=== PATIENT | female | born 1945 | race Caucasian/White ===

== ENCOUNTER → 2017-07-03 | Outpatient (CLI) | payer OTHER ==
[~2017-07-03] MED LIST: AMLODIPINE BESYL5 MG PO; CRESTOR20 MG PO; HYDROCODON-ACE1 EAC7 PO; LEXAPRO 10 MG T10 M1 PO; LISINOPRIL20 MG PO; PRILOSEC 20 MG20 MG PO; SPIRIVA INH; SYMBICORT160 MCG/4. INH
--- NOTE | ~2017-07-03 | 2DMMODE ---
[facility] [address] [place] [address] 2 D/M-MODE ECHOCARDIOGRAM Name: LAYNELINDAKO HAMPTON Room #: REG [facility]#: [id number] Admission: 07/03/17 Attend Phys: Flaco Joshua MD Discharge: Date of : 49 Date of Service: 07/03/17 1209 Report #: [id number] THIS REPORT FOR: //name// APPROVED REPORT Study performed: 07/03/2017 11:10:16 EXAM: Comprehensive 2D, Doppler, and color-flow Echocardiogram Patient Location: Out-Patient Room #: Echo lab 2 Status: routine BSA: 1.81 HR: 71 bpm BP: 136/82 mmHg Other Information Study Quality: Adequate Indications CAD Hypertension/HDD 2D Dimensions RVDd: 31.70 mm LVEF(%): 57.85 (>50%) IVSd: 11.69 (7-11mm) LVOT Diam: 21.93 (18-24mm) LVDd: 51.23 mm PWd: 12.08 (7-11mm) Ascending Ao: 30.81 (22-36mm) LVDs: 35.52 (25-40mm) Aortic Root: 25.47 mm IVC: 17.00 mm Foley's LVEF: 57.85 % Volumes Left Atrial Volume (Systole) Single Plane 4CH: 43.03 mL Single Plane 2CH: 38.21 mL LA ESV Index: 24.00 mL/m2 Aortic Valve AoV Peak John.: 1.11 m/s AO Peak Gr.: 4.97 mmHg LVOT Max P.98 mmHg LVOT Max V: 1.00 m/s ALISSON Vmax: 3.38 cm2 Mitral Valve E/A Ratio: 1.0 MV Decel. Time: 120.12 ms [facility] [place] [address] 2 D/M-MODE ECHOCARDIOGRAM Name: LINDA LAYNE Room #: REG [facility].#: [id number] Admission: 07/03/17 Attend Phys: Flaco Joshua MD Discharge: Date of : 49 Date of Service: 07/03/17 1209 Report #: [id number] MV E Max John.: 0.68 m/s MV A John.: 0.70 m/s MV PHT: 34.83 ms IVRT: 101.50 ms Pulmonary Valve PV Peak John.: 0.84 m/s PV Peak Gr.: 2.82 mmHg Pulmonary Vein P Vein S: 0.48 m/s P Vein A: 0.27 m/s P Vein D: 0.40 m/s P Vein A Dur.: 92.3 msec P Vein S/D Ratio: 1.20 Tricuspid Valve TR Peak John.: 2.62 m/s TR Peak Gr.: 27.40 mmHg PA Pressure: 32.00 mmHg Left Ventricle The left ventricle is normal size. Mild concentric left ventricular hypertrophy. The left ventricular systolic function is normal. The left ventricular ejection fraction is within the normal range. LVEF is 55%. Grade I - abnormal relaxation pattern. Right Ventricle The right ventricle is normal size. The right ventricular systolic function is normal. Atria The left atrium size is normal. The right atrium size is normal. Aortic Valve The aortic valve is normal in structure. No aortic regurgitation is present. There is no aortic valvular stenosis. Mitral Valve The mitral valve is normal in structure. Trace mitral regurgitation. No evidence of mitral valve stenosis. Tricuspid Valve The tricuspid valve is normal in structure. There is trace tricuspid regurgitation. Estimated PAP 32 mmHg. There is mild pulmonary hypertension. Pulmonic Valve [address] [address] 2 D/M-MODE ECHOCARDIOGRAM Name: LINDA LAYNE MEMO Room #: REG [facility] [place]#: [id number] Admission: 07/03/17 Attend Phys: Flaco Joshua MD Discharge: Date of : 49 Date of Service: 07/03/17 1209 Report #: [id number] The pulmonary valve is normal in structure. There is no pulmonic valvular regurgitation. Great Vessels The aortic root is normal in size. IVC is normal in size and collapses >50% with inspiration. Pericardium There is no pericardial effusion. <Conclusion> The left ventricle is normal size. Mild concentric left ventricular hypertrophy. The left ventricular systolic function is normal. Grade I - abnormal relaxation pattern. The right ventricle is normal size. The left atrium size is normal. Trace mitral regurgitation. There is trace tricuspid regurgitation. Estimated PAP 32 mmHg. <ELECTRONICALLY SIGNED> By: Flaco Joshua MD 07/03/171208 08 08 Flaco Joshua MD /INF
== END ==
LOC: CV 08:21
DX: I25.10 Atherosclerotic heart disease of native coronary artery without angina pectoris (principal); I10 Essential (primary) hypertension; Z88.8 Allergy status to other drugs, medicaments and biological substances

== ENCOUNTER 2018-03-21 14:36 | Emergency (ER) | payer OTHER ==
[~2018-03-21] VITALS: Ht 165.1 cm; Wt 70.8 kg
[2018-03-21] MEDS ORDERED: HYDROCODONE-AP1 EAC6 PO (15:50)
[2018-03-21 16:08] VITALS: BP 138/62
== END 2018-03-21 16:09 | disposition home or self-care (01) ==
LOC: ER 14:36
DX: S80.02XA Contusion of left knee, initial encounter (principal); I10 Essential (primary) hypertension; J44.9 Chronic obstructive pulmonary disease, unspecified; E78.00 Pure hypercholesterolemia, unspecified; Z90.49 Acquired absence of other specified parts of digestive tract; Z95.5 Presence of coronary angioplasty implant and graft; W00.0XXA Fall on same level due to ice and snow, initial encounter; Y93.89 Activity, other specified; Y92.89 Other specified places as the place of occurrence of the external cause; Y99.8 Other external cause status

== ENCOUNTER → 2018-07-06 | Outpatient (CLI) | payer OTHER ==
[~2018-07-06] MED LIST changes: +HYDROCODONE-AP1 EAC6 PO
== END ==
LOC: NUC 07:27
DX: I25.10 Atherosclerotic heart disease of native coronary artery without angina pectoris (principal); I48.91 Unspecified atrial fibrillation; E78.5 Hyperlipidemia, unspecified; I10 Essential (primary) hypertension; J44.9 Chronic obstructive pulmonary disease, unspecified; I73.9 Peripheral vascular disease, unspecified; Z82.49 Family history of ischemic heart disease and other diseases of the circulatory system; Z88.8 Allergy status to other drugs, medicaments and biological substances; Z87.891 Personal history of nicotine dependence; Z79.899 Other long term (current) drug therapy

== ENCOUNTER → 2019-07-22 | Outpatient (CLI) | payer OTHER ==
[~2019-07-22] MED LIST changes: +AMLODIPINE BESY10 MG PO; -AMLODIPINE BESYL5 MG PO; +ASA81BEC PO; +PLAVIX 75 MG TA75 MG PO; +PROAIR HFA8.5 GM INH; +PROTONIX40 M2 PO; +TRELEGY ELLIPT1 EACH INH; +ZOLPIDEM TARTRA10 MG PO
== END ==
LOC: SJCVCIMAG 08:04
DX: I65.23 Occlusion and stenosis of bilateral carotid arteries (principal); E04.1 Nontoxic single thyroid nodule; I70.203 Unspecified atherosclerosis of native arteries of extremities, bilateral legs; I25.10 Atherosclerotic heart disease of native coronary artery without angina pectoris; I12.9 Hypertensive chronic kidney disease with stage 1 through stage 4 chronic kidney disease, or unspecified chronic kidney disease; N18.9 Chronic kidney disease, unspecified; E78.00 Pure hypercholesterolemia, unspecified; J44.9 Chronic obstructive pulmonary disease, unspecified; Z87.891 Personal history of nicotine dependence; Z79.82 Long term (current) use of aspirin; Z79.899 Other long term (current) drug therapy; Z95.820 Peripheral vascular angioplasty status with implants and grafts

== ENCOUNTER 2019-07-28 06:47 | Observation (INO) | payer OTHER ==
[~2019-07-28] VITALS: Ht 167.6 cm; Wt 69.9 kg
[2019-07-28] VITALS (11 sets, daily range): BP systolic 115–166; BP diastolic 54–96
--- NOTE | ~2019-07-28 | HC ---
[facility] [place] [address] CONSULTATION Name: LINDA LAYNE Room #: 214-P [facility].[place]#: [id number] Admission: 07/28/19 Attend Phys: Angel Huggins MD Discharge: Date of : 49 Report #: [id number] THIS REPORT FOR: cc: Mee Haley MD, Laurie Dawn MD Forman, John M. MD ~ CC: Angel Haley DATE OF SERVICE: 07/28/2019 We were asked to see the patient by Dr. Huggins. HISTORY OF PRESENT ILLNESS: The patient is status post aortography with lower extremity views. The patient has bilateral severe femoral artery stenoses, right worse than left. The patient presents with fatigue on exertion and lower extremity discomfort on exertion. The patient has a long history of arterial occlusive disease with previous aortoiliac stent placement. The patient takes Plavix chronically. PAST MEDICAL HISTORY: Also significant for hypertension and elevated cholesterol and chronic obstructive pulmonary disease. SOCIAL HISTORY: The patient is a former smoker. MEDICATIONS AT HOME: Amlodipine, lisinopril, Crestor, Spiriva, Symbicort, omeprazole, Lexapro, hydrocodone. ALLERGIES: Pravastatin, rosuvastatin, evolocumab from [employer]. REVIEW OF SYSTEMS: CONSTITUTIONAL: Negative for fever or chills. EYES: Negative for eye pain or visual change. HEENT: Negative for rhinorrhea, sore throat. RESPIRATORY: Negative for cough or shortness of breath. CARDIAC: Negative for chest pain or palpitations. GASTROINTESTINAL: Negative for nausea, vomiting or blood. GENITOURINARY: Negative for burning, frequency, urgency or blood. MUSCULOSKELETAL: Complains of leg fatigue with walking, but no specific bone or joint pain. SKIN: No rash or infection. NEUROLOGIC: No motor or sensory dysfunction. ENDOCRINE: Denies diabetes. Denies tremor. Denies goiter. HEMATOLOGIC AND LYMPHATIC: Denies easy bruisability or bleeding. [facility] [address] [place] [address] CONSULTATION Name: LINDA LAYNE Room #: 214-[facility]..#: [id number] Admission: 07/28/19 Attend Phys: Angel Huggins MD Discharge: Date of : 49 Report #: [id number] PHYSICAL EXAMINATION: VITAL SIGNS: Blood pressure 141/54, heart rate 82, temperature 36.3, respiratory rate 20. HEENT: No scleral icterus, no arcus. NECK: No mass, no bruit. CHEST: Clear to auscultation. HEART: Rhythm regular. ABDOMEN: Soft. EXTREMITIES: No clubbing, cyanosis or edema. I do not feel right femoral or bilateral popliteal or bilateral pedal pulses. Left femoral not examined due to arteriography today. NEUROLOGIC: No motor or sensory dysfunction. MUSCULOSKELETAL: No bone or joint asymmetry or deformity. PSYCHIATRIC: Answers questions appropriately and shows insight into problem. I reviewed the findings of the arteriogram with the patient. There is high-grade bilateral femoral artery stenosis, most amenable to endarterectomy. I have recommended right femoral endarterectomy as the initial procedure with left to follow at a later date. Risks and details of this include but are not limited to bleeding, infection, anesthesia risks, and of course failure of the procedure. Options and alternatives were reviewed. The patient understands all of this and wishes to proceed. We note plans for the patient to be discharged today with return for admission electively. We will arrange for the preoperative testing. Thank you for the consult. By: 1407 1613 Enio Perry MD /nt
[~2019-07-28 06:47] MED LIST changes: -ASA81BEC PO; -PLAVIX 75 MG TA75 MG PO; -PROAIR HFA8.5 GM INH; -PROTONIX40 M2 PO; -TRELEGY ELLIPT1 EACH INH; -ZOLPIDEM TARTRA10 MG PO
[2019-07-28 07:26] LABS: HEMATOCRIT 38.8 % (37.0-47.0); HEMOGLOBIN 12.8 gm/dL (12.0-15.0); MCH 27.3 pg (26.0-34.0); MCV 82.6 fL (80.0-100.0); RBC 4.7 mil/uL (4.20-5.00); RDW 14.6 % (10.5-14.5); WBC 4.1 thou/uL (4.0-11.0)
[2019-07-28 07:32] LABS: CALCIUM 8.6 mg/dL (8.5-10.1); POTASSIUM 4.3 mmol/L (3.5-5.1)
[2019-07-28] MEDS ORDERED: PROAIR HFA8.5 GM INH (08:37)
[2019-07-28] MEDS ORDERED: PLAVIX 75 MG TA75 MG PO (08:38)
[2019-07-28] MEDS ORDERED: ASA81BEC PO (08:38)
[2019-07-28] MEDS ORDERED: TRELEGY ELLIPT1 EACH INH (08:39)
[2019-07-28] MEDS ORDERED: ZOLPIDEM TARTRA10 MG PO (08:40)
[2019-07-28] MEDS ORDERED: PROTONIX40 M2 PO (08:41)
--- NOTE | 2019-07-28 15:43 | NUR ---
ASSUMED CARE OF PT POST ANGIOGRM LEFT LE. LEFT GROIN SIGHT S/D/I, PATIENT COMPLIANT WITH POST ANGIOGRAM VS AND LEFT LEG IMMOBILIZATIONS. PT ALERTX4, FROM HOME, REPORTS SHE HAS COPD, CONTINENT OF BLADDER. LAST BM 07/27/19. PLAN IS TO DC POST 5 HOURS POST HEMOSTASIS. FLUIDS INFUSING PER ORDERED. NSR ON TELE. PT DENIES PAIN. PT DENIES SOB. REVIEWED POST ANGIOGRAM DISCHARGE PAPERS. DR HAMLIN ROUNDED BEDSIDE WITH DISCUSION TO SCHEDULE SURGERY. PERSONAL ITEMS AND CALL LIGHT IN REACH.
== END 2019-07-28 17:24 | disposition home or self-care (01) ==
LOC: CATH 06:47 → 2N 11:45 → CATH 16:27 → 2N 17:24 → CATH 19:45
PROVIDERS: ADMIT Nuclear Medicine Nuclear Cardiology
DX: I73.9 Peripheral vascular disease, unspecified (principal); I12.9 Hypertensive chronic kidney disease with stage 1 through stage 4 chronic kidney disease, or unspecified chronic kidney disease; N18.9 Chronic kidney disease, unspecified

== ENCOUNTER → 2019-08-05 | Outpatient (CLI) | payer OTHER ==
[~2019-08-05] MED LIST changes: +ASA81BEC PO; +PLAVIX 75 MG TA75 MG PO; +PROAIR HFA8.5 GM INH; +PROTONIX40 M2 PO; +TRELEGY ELLIPT1 EACH INH; +ZOLPIDEM TARTRA10 MG PO
== END ==
LOC: SJCVCIMAG 10:01
PROVIDERS: ATTEND Internal Medicine Cardiovascular Disease
DX: I25.10 Atherosclerotic heart disease of native coronary artery without angina pectoris (principal); J44.9 Chronic obstructive pulmonary disease, unspecified; I10 Essential (primary) hypertension; E78.5 Hyperlipidemia, unspecified; E78.00 Pure hypercholesterolemia, unspecified; I73.9 Peripheral vascular disease, unspecified; E04.1 Nontoxic single thyroid nodule; Z95.828 Presence of other vascular implants and grafts

== ENCOUNTER → 2019-08-10 | Outpatient (CLI) | payer OTHER | LOC: ULTRA 08:53 | DX: Z01.818 Encounter for other preprocedural examination (principal); I70.90 Unspecified atherosclerosis; I73.9 Peripheral vascular disease, unspecified ==

== ENCOUNTER 2019-08-17 06:14 | Inpatient (IN) | payer OTHER ==
[2019-08-10 10:22] LABS: ABSOLUTE NEUTROPHILS 2.4 thou/uL (1.4-8.2); BASOPHILS 0.9 % (0.0-2.0); EOSINOPHILS 3.8 % (0.0-3.0); HEMATOCRIT 40.4 % (37.0-47.0); HEMOGLOBIN 13.4 gm/dL (12.0-15.0); LYMPHOCYTES 26.9 % (24.0-44.0); MCHC 33.1 g/dL (28.0-37.0); MCV 81.5 fL (80.0-100.0); PLATELET COUNT 231 thou/uL (150-400); POLYS 58.4 % (36.0-66.0); RBC 4.96 mil/uL (4.20-5.00); RDW 14.9 % (10.5-14.5); WBC 4.1 thou/uL (4.0-11.0)
[2019-08-10 10:33] LABS: URINE BILIRUBIN NEGATIVE (Negative); URINE BLOOD TRACE (Negative); URINE CLARITY CLEAR; URINE COLOR YELLOW; URINE GLUCOSE-RANDOM* NEGATIVE (Negative); URINE KETONES NEGATIVE (Negative); URINE NITRITE-REFLEX NEGATIVE (Negative); URINE PROTEIN (DIPSTICK) NEGATIVE (Negative); URINE SPECIFIC GRAVITY <= 1.005 (1.005-1.035); URINE UROBILINOGEN 0.2 E.U./dl (0.2-1.0)
[2019-08-10 10:34] LABS: URINE LEUKOCYTES-REFLEX 1+ (Negative)
[2019-08-10 10:35] LABS: APTT 24.3 Seconds (24.5-32.8); PROTIME 9.7 Seconds (9.3-11.4)
[2019-08-10 10:36] LABS: CALCIUM 8.9 mg/dL (8.5-10.1); CREATININE 1.1 mg/dL (0.6-1.0); POTASSIUM 4.4 mmol/L (3.5-5.1); TOTAL BILIRUBIN 0.5 mg/dL (0.2-1.0); TOTAL PROTEIN 7.2 g/dL (6.4-8.2)
[2019-08-10 10:52] LABS: SQUAMOUS >10 Many /LPF (0-3)
[2019-08-10 10:54] LABS: CASTS None Seen /LPF (None Seen); CRYSTALS None Seen /LPF (None Seen)
[2019-08-10 10:55] LABS: URINE WBC-REFLEX 0-5 Rare /HPF (0-5)
[2019-08-10 10:57] LABS: URINE RBC 3-10 Few /HPF (0-2)
--- NOTE | 2019-08-11 07:58 | EKG ---
[facility] [place] [address] ELECTROCARDIOGRAM REPORT Name: LINDA LAYNE Room #: PRE IN M..#: [id number] Admission: Attend Phys: Enio Perry MD Discharge: Date of : 49 Report #: [id number] THIS REPORT FOR: cc: Mee Haley MD, Laurie Dawn MD Lundgren,Brian Mcfadden MD [facility] ~ THIS REPORT FOR: //name// [facility] Test Date: 2019-08-10 Test Time: 10:17:44 Pat Name: LINDA LAYNE Department: Room: Gender: F Mcat Tutor: johnny lizama : 1945 Requested By: Enio Perry Order Number: [id number] MD: Brian Bunch Measurements Intervals [place] Rate: 69 P: 54 MN: 154 QRS: 8 QRSD: 89 T: 31 QT: 406 QTc: 435 Interpretive Statements Sinus rhythm Normal tracing Compared to ECG 12/17/2008 11:59:03 Premature ventricular complexes are no longer present Electronically Signed On 08-11-2019 7:56:47 CDT by Brain Bunch [email or web address] <ELECTRONICALLY SIGNED> By: Brian Bunch MD, [facility] 08/11/19 0756 1017 1017 Brian Bunch MD, [facility] /EPI
[2019-08-17] VITALS (13 sets, daily range): BP systolic 86–123; BP diastolic 42–64
[~2019-08-17] VITALS: Ht 165.1 cm; Wt 69.9 kg
--- NOTE | 2019-08-17 15:16 | NUR ---
1259-RECEIVED PT INTO ROOM 249 FROM .--VW MED FOR PAIN.MULT ISSUES TAKEN CARE OF.REPOS p PAIN MED,MADE COMF,TO SLEEP. O2 APPLIED SHORTLY THERE p FOR SAT ON RA DOWN TO LOW 80'S. NC @ 2L W SATS CONSISTENTLY >.93%. UOP VERY SCANT-WILL NOTIFY . EBL IN O.R. 300ML'S.--VW
[2019-08-18] VITALS (17 sets, daily range): BP systolic 97–139; BP diastolic 39–102
--- NOTE | 2019-08-18 05:42 | NUR ---
PT RESTED WELL ALL NOC. PAIN MANAGED ONCE LAST NIGHT BEFORE PT'S BEDTIME. NO FURTHER COMPLAINTS OR DISCOMFORT. PT IS STABLE. R GROIN SITE CDI WITH WOUND VAC IN [place]. NO HEMATOMA OR EDEMA. U/O AVERAGE OF 50ML/HR. PT IS PROGRESSING WELL TOWARDS POC GOALS.
[2019-08-18 07:59] LABS: HEMATOCRIT 30.2 % (37.0-47.0); HEMOGLOBIN 9.9 gm/dL (12.0-15.0); MCH 27.6 pg (26.0-34.0); MCHC 32.9 g/dL (28.0-37.0); MCV 84.2 fL (80.0-100.0); RBC 3.59 mil/uL (4.20-5.00); RDW 15.4 % (10.5-14.5); WBC 6.7 thou/uL (4.0-11.0)
[2019-08-18 08:04] LABS: CALCIUM 7.9 mg/dL (8.5-10.1); POTASSIUM 4.3 mmol/L (3.5-5.1)
--- NOTE | 2019-08-18 10:09 | NUR ---
08- Lynn discontinued 929- Worked with OT 1000- Worked with PT, pain pill given for scale of 4.
--- NOTE | 2019-08-18 13:18 | NUR ---
Chart reviewed and case discussed with the care team. Pt is dcing home today with outpt f/u in CTS office next week. Pt was seen by PT/OT and cleared for dc home. O2 weaned off and progressing postop. 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 No dme or hh needs are indicated at this time. She lives in her own home with 2 steps to enter. Good support system. The pt has health insurance and a pcp in place for f/u care needs. No cm interventions indicated at this time.
--- NOTE | 2019-08-18 13:20 | NUR ---
1320- Nurse walked with patient around entire ICU with residential monitor. Patient tolerated well. HR highest of 97bpm RR after ambulation was 18 Pt expressed she felt tired, but was good.
--- NOTE | 2019-08-18 13:50 | NUR ---
1350- Dr. Perry and Kenrick rounded on patient. Kenrick switched from the wound vac to the provena. Physician handed patient a script for pain medications at home. Patient to be discharged. She has voided and expressed is ready to go home. Nurse will await completed discharge paperwork.
--- NOTE | 2019-08-18 14:45 | NUR ---
DISCHARGE INSTRUCTIONS REVIEWED WITH PATIENT. SHE DENIED QUESTIONS. IV WAS DISCONTINUED, PRESSURE HELD FOR 5 MINUTES. NO BLEEDING NOTED. SHE IS BEING WHEELED OUT TO WHERE HER IS PICKING HER UP.
--- NOTE | 2019-08-18 17:07 | PATH ---
[facility] [address] [place] [address] PATHOLOGY RPT PROCEDURE Name: LINDA PEREZ Room #: 249-P DIS IN M.R.#: [id number] Admission: 08/17/19 Date of : 49 Discharge: 08/18/19 Report #: [id number] Path Case #: [id number] LCA Accession Number: [id number] . 01 Material submitted: . artery - RIGHT FEMORAL ENDARTERECTOMY PLAQUE. Modifiers: right, femoral . 01 Clinical history: . Peripheral artery disease . 02 Diagnosis: Right femoral endartery plaque, endarterectomy: - Fragments of calcific atherosclerotic plaque. 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 02 Electronically signed: . Nellie Fulton MD, Pathologist NPI- [id number] . 01 Gross description: . The specimen is received in formalin, labeled "Linda Perez, right femoral endarterectomy plaque". Received are multiple segments of moderately calcified plaque measuring 3.0 x 2.1 x 1.2 cm in aggregate dimensions. The specimen is submitted representatively in cassette A1, following light decalcification. (CAA; 08/17/2019) QAC/QAC 08/17/2019 1625 Local . 02 Pathologist provided ICD-10: I70.201 . 02 CPT . 260569, 342073 Specimen Comment: A courtesy copy of this report has been sent to [phone] Specimen Comment: [phone] Specimen Comment: Report sent to / DR TRIPP Performed at: [address], [place] [id number] MD Claudio Pang MD Phone: [phone] Performed at: [address] [id number] MD Nellie Fulton MD Phone: [phone]
--- NOTE | 2019-08-22 09:00 | O ---
[place] [address] OPERATIVE REPORT Name: LINDA LAYNE Room #: 249-P [facility] IN M.R.#: [id number] Admission: 08/17/19 Attend Phys: Enio Perry MD Discharge: 08/18/19 Date of : 49 Report #: [id number] THIS REPORT FOR: cc: Mee Haley MD, Laurie Dawn MD Forman,Enio Rosas MD ~ CC: Enio Haley DATE OF SERVICE: 08/17/2019 PREOPERATIVE DIAGNOSIS: Femoral artery occlusive disease, clinically right. POSTOPERATIVE DIAGNOSIS: Femoral artery occlusive disease, clinically right. OPERATION: Right femoral endarterectomy with patch closure. SURGEON: Enio Perry MD DIRECTOR OF RETAIL MERCHANDISING: NIKITA Nation. ANESTHESIA: General. INDICATIONS: The patient is a 74-year-old with arterial occlusive disease. The patient has bilateral common femoral artery subtotal occlusions, worse on the right than the left. These extend into the deep femoral arteries. FINDINGS AND TECHNIQUE: After general anesthesia was established, an incision was made in the right groin. The common deep and superficial femoral arteries were identified and controlled, 10,000 units of heparin were given. The femoral arteries were occluded. Femoral arteriotomy was made and an endarterectomy was performed without creating a distal flap. Neointima was inspected and all loose debris was removed. Tacking sutures were placed at the distal transition zone. When the endarterectomy was deemed satisfactory, the arteriotomy was closed with thin walled pericardial patch and running Prolene. Prior to finishing the closure, the arteries were backbled. Flow was reestablished. Hemostasis was ascertained. Protamine was given to reverse the heparin. When hemostasis was satisfactory, the groin was closed in layers and the patient was taken to the recovery area in [address] [place] [address] OPERATIVE REPORT Name: XILINDA MEMO Room #: 249-P DIS IN M.R.#: [id number] Admission: 08/17/19 Attend Phys: Enio Perry MD Discharge: 08/18/19 Date of : 49 Report #: [id number] good condition. Palpable popliteal pulse was present at the time of leaving the operating room and the foot was warm and pink. All counts reported as correct. <ELECTRONICALLY SIGNED> By: Enio Perry MD 08/22/19 0900 1128 1157 Enio Perry MD /nt
== END 2019-08-18 14:45 | disposition home or self-care (01) | DRG 253 ==
LOC: ICU 06:14 → TBA 06:14 → PRE 09:02 → ICU 12:46 → PRE 13:48 → ICU 08-18 14:45
PROVIDERS: Physician Assistant; ADMIT Surgery Vascular Surgery; ATTEND Surgery Vascular Surgery
PROC: 04UK0JZ Supplement Right Femoral Artery with Synthetic Substitute, Open Approach (ICD-10-PCS; principal; 2019-08-17)
PROC: 04CK0ZZ Extirpation of Matter from Right Femoral Artery, Open Approach (ICD-10-PCS; principal; 2019-08-17)
DX: I74.3 Embolism and thrombosis of arteries of the lower extremities (principal); D68.69 Other thrombophilia; I25.10 Atherosclerotic heart disease of native coronary artery without angina pectoris; I10 Essential (primary) hypertension; E78.5 Hyperlipidemia, unspecified; Z90.49 Acquired absence of other specified parts of digestive tract; Z95.5 Presence of coronary angioplasty implant and graft; Z83.3 Family history of diabetes mellitus; Z79.82 Long term (current) use of aspirin; Z82.49 Family history of ischemic heart disease and other diseases of the circulatory system; Z79.899 Other long term (current) drug therapy; Z03.818 Encounter for observation for suspected exposure to other biological agents ruled out
CPT/HCPCS: 10078; 47375; 48888; 50010; 50101; 50386; 50417; 50455; 50643; 50953; 52279; 52287; 54118; 56524; 56526; 56528; 56531; 56534; 56668; 56760; 62110; 62900; 65090; 70005

== ENCOUNTER → 2019-08-27 | Outpatient (CLI) | payer OTHER | LOC: SJCVCIMAG 11:38 | PROVIDERS: ATTEND Surgery Vascular Surgery | DX: I73.9 Peripheral vascular disease, unspecified (principal); R19.09 Other intra-abdominal and pelvic swelling, mass and lump; Z98.890 Other specified postprocedural states; Z87.891 Personal history of nicotine dependence ==

== ENCOUNTER 2019-11-01 08:02 | Emergency (ER) | payer OTHER ==
[~2019-11-01] VITALS: Ht 165.1 cm; Wt 70.3 kg
[2019-11-01] MEDS ORDERED: EZETIMIBE10 MG PO (08:09)
[2019-11-01] MEDS ORDERED: LIPITOR 40 MG T40 M1 PO (08:10)
[2019-11-01 09:13] LABS: ANION GAP 9 mmol/L (7-16); BUN 13 mg/dL (7-18); CALCIUM 8.5 mg/dL (8.5-10.1); CHLORIDE 101 mmol/L (98-107); CO2 27 mmol/L (21-32); GLUCOSE 113 mg/dL (74-106); POTASSIUM 3.8 mmol/L (3.5-5.1); SODIUM 137 mmol/L (136-145)
[2019-11-01 09:21] LABS: MAGNESIUM 1.9 mg/dL (1.8-2.4); TROPONIN-I <0.06 ng/mL (<0.06)
--- NOTE | 2019-11-01 09:29 | EKG ---
[facility] [place] [address] ELECTROCARDIOGRAM REPORT Name: LINDA LAYNE Room #: REG [facility]#: [id number] Admission: 11/01/19 Attend Phys: Discharge: Date of : 49 Report #: [id number] THIS REPORT FOR: cc: Mee Haley MD, Laurie Dawn MD Lundgren, Craig H. MD [facility] ~ THIS REPORT FOR: //name// [facility] ED Test Date: 2019-11-01 Test Time: 08:29:23 Pat Name: LINDA LAYNE Department: Room: Gender: Business System Consultant: janicecorylee : 1945 Requested By: Ravi Anguiano Order Number: [id number] MD: Brian Bunch Measurements Intervals [place] Rate: 71 P: 62 DE: 146 QRS: 13 QRSD: 90 T: 30 QT: 409 QTc: 445 Interpretive Statements Sinus rhythm No significant abnormality Compared to ECG 08/10/2019 10:17:44 No significant changes Electronically Signed On 11-01-2019 9:29:07 CDT by Brian Bunch [email or web address] <ELECTRONICALLY SIGNED> By: Brian Bunch MD, [facility] 11/01/1929 8 8 Brian Bunch MD, [facility] /EPI
[2019-11-01 10:04] LABS: URINE BILIRUBIN NEGATIVE (Negative); URINE BLOOD NEGATIVE (Negative); URINE CLARITY CLEAR; URINE COLOR YELLOW; URINE GLUCOSE-RANDOM* NEGATIVE (Negative); URINE KETONES NEGATIVE (Negative); URINE NITRITE-REFLEX NEGATIVE (Negative); URINE PROTEIN (DIPSTICK) 1+ (Negative); URINE SPECIFIC GRAVITY 1.015 (1.005-1.035)
[2019-11-01 10:05] LABS: URINE LEUKOCYTES-REFLEX 1+ (Negative)
[2019-11-01 10:20] LABS: HEMOGLOBIN 11.3 gm/dL (12.0-15.0); MCHC 32.7 g/dL (28.0-37.0)
[2019-11-01 10:22] LABS: HEMATOCRIT 34.5 % (37.0-47.0); MCH 26.2 pg (26.0-34.0); MCV 80.1 fL (80.0-100.0); RBC 4.31 mil/uL (4.20-5.00); RDW 15.4 % (10.5-14.5)
[2019-11-01 10:24] LABS: BACTERIA-REFLEX None Seen /HPF (None Seen); CASTS None Seen /LPF (None Seen); MUCUS 0-3 Light strn/LPF (None Seen); SQUAMOUS 4-10 Moderate /LPF (0-3); URINE RBC None Seen /HPF (0-2); URINE WBC-REFLEX 0-5 Rare /HPF (0-5)
[2019-11-01 10:25] LABS: CRYSTALS None Seen /LPF (None Seen)
[2019-11-01 12:00] VITALS: BP 141/69
[2019-11-01 12:07] LABS: PLATELET COUNT 168 thou/uL (150-400)
[2019-11-01 12:13] LABS: ABSOLUTE NEUTROPHILS 4.3 thou/uL (1.4-8.2); ANISOCYTOSIS SLIGHT; ATYPICAL LYMPHS 2 %; POIKILOCYTOSIS SLIGHT
== END 2019-11-01 12:00 | disposition home or self-care (01) ==
LOC: ER 08:02
PROVIDERS: Emergency Medicine
DX: R42 Dizziness and giddiness (principal); I10 Essential (primary) hypertension; J44.9 Chronic obstructive pulmonary disease, unspecified; E78.5 Hyperlipidemia, unspecified; K21.9 Gastro-esophageal reflux disease without esophagitis; I25.10 Atherosclerotic heart disease of native coronary artery without angina pectoris; Z90.710 Acquired absence of both cervix and uterus; Z79.899 Other long term (current) drug therapy; Z79.82 Long term (current) use of aspirin; Z79.01 Long term (current) use of anticoagulants; Z88.8 Allergy status to other drugs, medicaments and biological substances

== ENCOUNTER 2019-11-25 06:09 | Inpatient (IN) | payer OTHER ==
[2019-11-22 11:51] LABS: ABSOLUTE NEUTROPHILS 3.2 thou/uL (1.4-8.2); BASOPHILS 0.9 % (0.0-2.0); EOSINOPHILS 3.1 % (0.0-3.0); HEMATOCRIT 36.7 % (37.0-47.0); HEMOGLOBIN 11.5 gm/dL (12.0-15.0); LYMPHOCYTES 22.6 % (24.0-44.0); MCH 25.4 pg (26.0-34.0); MCHC 31.4 g/dL (28.0-37.0); MCV 80.8 fL (80.0-100.0); MONOCYTES 11.4 % (1.0-8.0); PLATELET COUNT 268 thou/uL (150-400); RBC 4.55 mil/uL (4.20-5.00); RDW 16.1 % (10.5-14.5); WBC 5.2 thou/uL (4.0-11.0)
[2019-11-22 11:53] LABS: URINE BLOOD NEGATIVE (Negative); URINE GLUCOSE-RANDOM* NEGATIVE (Negative); URINE KETONES TRACE (Negative); URINE NITRITE-REFLEX NEGATIVE (Negative); URINE PROTEIN (DIPSTICK) 2+ (Negative); URINE SPECIFIC GRAVITY >= 1.030 (1.005-1.035)
[2019-11-22 12:02] LABS: URINE CLARITY SL HAZY; URINE COLOR AMBER; URINE LEUKOCYTES-REFLEX 2+ (Negative)
[2019-11-22 12:04] LABS: ICTOTEST (BILI CONFIRMATORY) Negative (Negative); URINE BILIRUBIN NEGATIVE (Negative)
[2019-11-22 12:07] LABS: APTT 23.6 Seconds (24.5-32.8); PROTIME 9.7 Seconds (9.3-11.4)
[2019-11-22 12:14] LABS: CALCIUM 9.2 mg/dL (8.5-10.1); CREATININE 1.1 mg/dL (0.6-1.0); POTASSIUM 4.2 mmol/L (3.5-5.1); TOTAL BILIRUBIN 0.6 mg/dL (0.2-1.0); TOTAL PROTEIN 7.1 g/dL (6.4-8.2)
[2019-11-22 12:17] LABS: BACTERIA-REFLEX >30 Many /HPF (None Seen); SQUAMOUS >10 Many /LPF (0-3); URINE WBC-REFLEX >25 Many /HPF (0-5)
[2019-11-22 12:18] LABS: CRYSTALS None Seen /LPF (None Seen); HYALINE CASTS 0-3 Few /LPF (None Seen); URINE RBC 0-2 Rare /HPF (0-2)
[2019-11-22 12:19] LABS: WBC CLUMPS Few (None Seen)
--- NOTE | 2019-11-22 12:42 | EKG ---
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
[~2019-11-25] VITALS: Ht 165.1 cm; Wt 69.6 kg
[~2019-11-25 06:09] MED LIST changes: +EZETIMIBE10 MG PO; +LIPITOR 40 MG T40 M1 PO; +VITAMIN D31250 MCG PO
[2019-11-25 07:09] VITALS: BP 109/56
[2019-11-25 13:20] VITALS: BP 89/56
--- NOTE | 2019-11-25 15:06 | NUR ---
1320-RECEIVED PT FROM PACU IN ICU BED. C/O OP PAIN 12/17.VERY TENSE.--VW 1335-FENTANYL FOR OP PAIN.--VW 1400-PAIN A -09/16.--VW
[2019-11-26] VITALS (13 sets, daily range): BP systolic 105–141; BP diastolic 39–87
--- NOTE | 2019-11-26 04:38 | NUR ---
ASSUMED CARE OF PATIENT AT 1900. PO PAIN MEDS GIVEN NEEDED, RELIEF OBTAINED. BLOOD PRESSURE REMAINED WITHIN NORMAL LIMITS, CARDENE OFF CHARTED. PROGRESSING WELL TOWARDS POC GOALS.
[2019-11-26 06:03] LABS: RBC 2.57 mil/uL (4.20-5.00)
[2019-11-26 06:05] LABS: HEMATOCRIT 20.8 % (37.0-47.0); HEMOGLOBIN 6.6 gm/dL (12.0-15.0); MCH 25.7 pg (26.0-34.0); MCHC 31.7 g/dL (28.0-37.0); MCV 81.1 fL (80.0-100.0)
[2019-11-26 06:23] LABS: ANION GAP 22 mmol/L (7-16); BUN 6 mg/dL (7-18); CHLORIDE 120 mmol/L (98-107); CO2 15 mmol/L (21-32); CREATININE 0.5 mg/dL (0.6-1.0); GLUCOSE 82 mg/dL (74-106); SODIUM 157 mmol/L (136-145)
[2019-11-26 06:39] LABS: CALCIUM < 5.0 mg/dL (8.5-10.1); POTASSIUM 2.5 mmol/L (3.5-5.1)
--- NOTE | 2019-11-26 07:13 | NUR ---
ASSUMMED CARE FROM THE NIGHT NURSE. IVF OFF. CRITICAL LAB CALLED TO DR HAMLIN AND LABS REPEATED. PATIENT IS ALERT AND ORIENTED. LEFT GROIN DRESSING IS DRY AND INTACT TO WOUND VAC. LEFT GROIN IS SOFT, NO HEMATOMA NOTED. DENIES BACK OR FLANK PAIN. PATIENT IS A/OX4.
[2019-11-26 07:18] LABS: HEMATOCRIT 25.9 % (37.0-47.0); HEMOGLOBIN 8.3 gm/dL (12.0-15.0); MCH 25.6 pg (26.0-34.0); MCHC 31.9 g/dL (28.0-37.0); RBC 3.24 mil/uL (4.20-5.00); RDW 15.7 % (10.5-14.5); WBC 6.1 thou/uL (4.0-11.0)
[2019-11-26 07:26] LABS: CREATININE 0.9 mg/dL (0.6-1.0)
[2019-11-26 07:31] LABS: POTASSIUM 4.4 mmol/L (3.5-5.1)
[2019-11-26 07:32] LABS: CALCIUM 7.9 mg/dL (8.5-10.1)
--- NOTE | 2019-11-26 10:46 | O ---
[facility] [place] [address] OPERATIVE REPORT Name: LINDA LAYNE Room #: 251-P ADM IN M.R.#: [id number] Admission: 11/25/19 Attend Phys: Enio Perry MD Discharge: Date of : 49 Report #: [id number] THIS REPORT FOR: cc: Mee Haley MD, Laurie Dawn MD Forman,Enio Rosas MD ~ CC: Enio Medina DATE OF SERVICE: 11/25/2019 PREOPERATIVE DIAGNOSIS: Left femoral arterial occlusive disease. POSTOPERATIVE DIAGNOSIS: Left femoral arterial occlusive disease. OPERATION: Left femoral artery endarterectomy with patch closure. SURGEON: Enio Perry MD AIRLINE RADIO OPERATOR: NIKITA Hansen. ANESTHESIA: General. INDICATIONS: The patient is a 74-year-old with high-grade lesion in the left common femoral artery, presenting with claudication. FINDINGS AND TECHNIQUE: After general anesthesia was established, an oblique incision was made in the left groin. Common deep and superficial femoral arteries were identified and controlled, 10,000 units of heparin were given. A femoral arteriotomy was made. The endarterectomy was performed without creating a distal flap. Neointima was inspected and all loose debris was removed. Tacking sutures were placed at the transition zone. When the endarterectomy was deemed to be satisfactory, the arteriotomy was closed with running Prolene and a thin walled pericardial patch. Prior to finishing the closure, the arteries were backbled and the femoral artery was flushed with heparinized saline. Flow was established. Protamine was given. Hemostasis was ascertained. When hemostasis was satisfactory, the groin was closed in layers and the patient [facility] [address] [place] [address] OPERATIVE REPORT Name: LINDA LAYNE Room #: 251-P ADM IN M.R.#: [id number] Admission: 11/25/19 Attend Phys: Enio Perry MD Discharge: Date of : 49 Report #: [id number] was taken to the recovery area in good condition. Strong dorsalis pedis pulse is palpable. All counts reported as correct. <ELECTRONICALLY SIGNED> By: Enio Perry MD 11/26/19 1046 1332 1340 Enio ePrry MD /nt
--- NOTE | 2019-11-26 14:15 | NUR ---
discussed during los, possible dc later today or tomorrow. no anticipated needs. will cont following as needed for dc needs. dcp home no needs.
--- NOTE | 2019-11-26 14:57 | NUR ---
PATIENT STRAIGHT CATHED 200ML OF URINE, ANDREW NOTIFIED AND ORDERED TO ENCOURAGE ORAL FLUID INTAKE A 250ML NS BOLUS.
--- NOTE | 2019-11-26 15:07 | PATH ---
[facility] [address] [place] [address] PATHOLOGY RPT PROCEDURE Name: LINDA PEREZ Room #: 251-P ADM IN M.R.#: [id number] Admission: 11/25/19 Date of : 49 Discharge: Report #: [id number] Path Case #: [id number] LCA Accession Number: [id number] . 01 Material submitted: . artery - LEFT FEMORAL PLAQUE. Modifiers: left, femoral . 01 Clinical history: . PAD . 02 Diagnosis: Left femoral plaque, endarterectomy: - Fragments of vessel wall with myxoid degeneration as well as calcific atherosclerotic plaque. (IUV/db; 11/26/2019) LBQ 11/26/2019 1329 Local . 02 Electronically signed: . Nellie Fulton MD, Pathologist NPI- [id number] . 01 Gross description: . Received in formalin labeled "Linda Perez, left femoral plaque" is a 4.0 x 3.3 x 0.8 cm aggregate of washington-yellow rubbery possible vascular tissue. Approximately 80% of the specimen is involved with washington-white calcifications. Hose Seamer tissue is submitted in cassette A1 following decalcification. ([facility]; 11/25/2019) [facility] 11/25/2019 1738 Local . 02 Pathologist provided ICD-10: I70.202 . 02 CPT . 940963, [id number] Specimen Comment: A courtesy copy of this report has been sent to [phone] Specimen Comment: [phone], Specimen Comment: Report sent to ,DR ZEE / DR TRIPP Performed at: [address], [place] [id number] MD Claudio Pang MD Phone: [phone] Performed at: [address] [id number] MD Nellie Fulton MD Phone: [phone]
[2019-11-27] VITALS (8 sets, daily range): BP systolic 116–131; BP diastolic 43–59
--- NOTE | 2019-11-27 06:00 | NUR ---
PT HAS SLEPT AT INTERVALS TONIGHT. AWAKE AND ALERT UP TO BEDSIDE COMMODE. VOIDED 1500 CC CLEAR CUONG URINE, VSS SR NO SPARKLE. LUNGS CLEAR., HAD ONE DOSE OF PAIN MED EARLIER IN THE EVENING. DENIES DISCOMFORT. LEFT GROIN DRESSING INTACT WITH WOUND VAC. WILL TX TO HOME TODAY. PROGRESSING TOWARD GOALS
[2019-11-27 06:10] LABS: CALCIUM 8.1 mg/dL (8.5-10.1); POTASSIUM 4.5 mmol/L (3.5-5.1)
[2019-11-27 06:17] LABS: HEMATOCRIT 25.3 % (37.0-47.0); HEMOGLOBIN 8.1 gm/dL (12.0-15.0); MCH 26.1 pg (26.0-34.0); MCHC 32.1 g/dL (28.0-37.0); MCV 81.1 fL (80.0-100.0); RBC 3.12 mil/uL (4.20-5.00); RDW 15.7 % (10.5-14.5); WBC 5.1 thou/uL (4.0-11.0)
--- NOTE | 2019-11-27 10:56 | NUR ---
ASSESSMENTS AND INTERVENTIONS DOCCUMENTED. PATIENT DISCHARGED AT 1054.
== END 2019-11-27 10:55 | disposition home or self-care (01) | DRG 254 ==
LOC: ICU 06:09 → TBA 06:09 → PRE 07:50 → ICU 13:47 → PRE 14:19 → ICU 11-27 10:55
PROVIDERS: Physician Assistant; ADMIT Surgery Vascular Surgery; ATTEND Surgery Vascular Surgery
PROC: 04CL0ZZ Extirpation of Matter from Left Femoral Artery, Open Approach (ICD-10-PCS; principal; 2019-11-25)
PROC: 04UL07Z Supplement Left Femoral Artery with Autologous Tissue Substitute, Open Approach (ICD-10-PCS; principal; 2019-11-25)
DX: I70.202 Unspecified atherosclerosis of native arteries of extremities, left leg (principal); Z20.828 Contact with and (suspected) exposure to other viral communicable diseases; Z88.8 Allergy status to other drugs, medicaments and biological substances
CPT/HCPCS: 10078; 50010; 50101; 50386; 50455; 50643; 50953; 52279; 52287; 56524; 56526; 56528; 56531; 56534; 56668; 56760; 57092; 57093; 62110; 62900; 70005

== ENCOUNTER 2019-12-14 20:51 | Inpatient (IN) | payer OTHER ==
[~2019-12-14] VITALS: Ht 165.1 cm; Wt 68.9 kg
[2019-12-14 21:08] VITALS: BP 129/52
[2019-12-14 21:58] LABS: ABSOLUTE NEUTROPHILS 10.5 thou/uL (1.4-8.2); BASOPHILS 0.5 % (0.0-2.0); EOSINOPHILS 0.1 % (0.0-3.0); HEMATOCRIT 28.8 % (37.0-47.0); HEMOGLOBIN 9.4 gm/dL (12.0-15.0); LYMPHOCYTES 5.7 % (24.0-44.0); MCH 25.2 pg (26.0-34.0); MCHC 32.6 g/dL (28.0-37.0); MCV 77.5 fL (80.0-100.0); MONOCYTES 8.8 % (1.0-8.0); PLATELET COUNT 315 thou/uL (150-400); POLYS 84.9 % (36.0-66.0); RBC 3.72 mil/uL (4.20-5.00); RDW 15.6 % (10.5-14.5); WBC 12.3 thou/uL (4.0-11.0)
[2019-12-14 22:07] LABS: CALCIUM 8.2 mg/dL (8.5-10.1); CREATININE 1.1 mg/dL (0.6-1.0); POTASSIUM 3.8 mmol/L (3.5-5.1)
[2019-12-14 23:25] VITALS: BP 130/62
--- NOTE | 2019-12-14 23:28 | NUR ---
HAND OFF TOOL SENT AND FIRST ATTMEPT AT REPORT WITH NO ANSWER
--- NOTE | 2019-12-14 23:45 | NUR ---
SECOND ATTEMPT AT REPORT
[2019-12-14 23:58] VITALS: BP 127/46
[2019-12-15 00:17] VITALS: BP 134/48
--- NOTE | 2019-12-15 05:12 | NUR ---
PT WAS ADMITTED TO THE UNIT FROM THE ER IN A STABLE CONDITION.PT C/O PAIN ON HER L GROIN,MANAGED WITH MED.REDNESS AND CLEAR DRAINAGE NOTED TO HER L GROIN.PT UP ADLIB IN THE ROOM.ADMISSION HX,EDUCATION AND ASSESSMENT COMPLETED.PT RESTING ON HER BED AT THIS TIME.CALL LIGHT WITHIN REACH.
[2019-12-15 06:26] LABS: HEMATOCRIT 27.3 % (37.0-47.0); HEMOGLOBIN 8.7 gm/dL (12.0-15.0); MCH 24.8 pg (26.0-34.0); MCHC 31.8 g/dL (28.0-37.0); MCV 78.2 fL (80.0-100.0); RBC 3.5 mil/uL (4.20-5.00); RDW 15.8 % (10.5-14.5); WBC 11.5 thou/uL (4.0-11.0)
[2019-12-15 06:42] LABS: CALCIUM 8.2 mg/dL (8.5-10.1); CREATININE 1.1 mg/dL (0.6-1.0); POTASSIUM 3.6 mmol/L (3.5-5.1)
[2019-12-15 08:34] VITALS: BP 127/65
[2019-12-15 13:26] LABS: URINE BILIRUBIN NEGATIVE (Negative); URINE BLOOD TRACE (Negative); URINE CLARITY CLEAR; URINE COLOR YELLOW; URINE GLUCOSE-RANDOM* NEGATIVE (Negative); URINE KETONES NEGATIVE (Negative); URINE NITRITE-REFLEX NEGATIVE (Negative); URINE PROTEIN (DIPSTICK) TRACE (Negative); URINE SPECIFIC GRAVITY 1.025 (1.005-1.035); URINE UROBILINOGEN 0.2 E.U./dl (0.2-1.0)
[2019-12-15 13:27] LABS: URINE LEUKOCYTES-REFLEX 2+ (Negative)
--- NOTE | 2019-12-15 13:31 | NUR ---
ASSESSMENT: CM REVIEWED CHART AND SPOKE WITH PATIENT. PT IS ALERT AND ORIENTED X4. PT IS HERE DUE TO GROIN CELLULITIS. PT LIVES AT HOME WITH HER . PT HAD A LEFT FEMORAL ENDARTERECTOMY ABOUT 2 WEEKS AGO AND REPORTS PAIN IN HER GROIN AREA. PT IS CURRENTLY ON IV ANBX. PT REPORTS HAVING ABOUT 3 STEPS TO ENTER HER HOME WITH HANDRAILS. PT REPORTS SHE HAS NO STEPS SHE HAS TO USE ONCE INSIDE. PT STATES SHE HAS NOT HAD HH IN THE PAST OR BEEN TO A SNF. PT REPORTS SHE IS NORMALLY INDEPENDENT WITH ADLS AND AMBULATION. CM DISCUSSED ROL. PT REPORTS SHE HOPES SHE HAS NO NEEDS WHEN SHE LEAVES. CM WILL CONTINUE TO FOLLOW TO ASSIST NEEDED.
[2019-12-15 13:37] LABS: BACTERIA-REFLEX >30 Many /HPF (None Seen); CASTS None Seen /LPF (None Seen); SQUAMOUS >10 Many /LPF (0-3); URINE RBC 0-2 Rare /HPF (0-2); URINE WBC-REFLEX >25 Many /HPF (0-5)
[2019-12-15 13:38] LABS: CRYSTALS None Seen /LPF (None Seen)
--- NOTE | 2019-12-15 16:12 | NUR ---
PT ALERT AND ORIENTED TIMES FOUR. VSS. PT C/O LEFT GROIN PAIN PRN PAIN MEDICATION GIVEN WITH GOOD RELEIF. DRESSING TO LEFT GROIN CHANGED PER SPRING COILING MACHINE SETTER. PT TOLERATES MEDS AND MEALS. PT UP AB ORI TO RESTROOM WITH STEADY GAIT. WILL CONTINUE TO MONITOR.
[2019-12-15 16:39] VITALS: BP 121/55
[2019-12-15 19:10] VITALS: BP 130/59
--- NOTE | 2019-12-16 04:17 | NUR ---
PT'S PAIN MANGED WITH KALE MED THIS SHIFT.PER REPORT,NURSES ARE NOT TO CHANGE THE KATERINA DRGS TO HER L GROIN ONLY THE PHYSICIAN WILL BE DOING THE DRSG CHANGES.PT'S KATERINA DRSG STARTED FLASHING YELLOW,PT STARTED PANICKING.ON ASSESMENT,THE DRSG WAS SATURATED BUT THEIR WAS NO LEAKAGE NOTED.PT STATED THAT THE PHYSICIAN TOLD HER TO LET THE NURSE KNOW AND TO CALL HIM IMMEDIATELY.PT WOULD NOT REST EVEN AFTER BEING TOLD WHAT THE NURSE GOT IN REPORT.PT INSISTED THAT THE NURSE SHOULD INFORM THE PHYSICIAN.L GROIN AREA RED AND WARM TO TOUCH.PHYSICIAN WAS NOTIFIED ABOUT PT'S CONCERN.PHYSICAIN STATED THAT HE WILL CHANGE THE DRSG IN THE AM WHEN HE GETS HERE.PT INFORMED AND WAS MORE RELAXED AND WAS ABLE TO SLEEP.PT CONT ON HER IV ABX.CALL LIGHT WITHIN REACH. PT'S KATERINA DRSG STARTED FLASHING THIS SHIFT,PT STATED THAT THE PHYSICIAN WANTED TO BE NOTIFIED IMMEDIATELY IF IT HAPPENS.PT WAS
[2019-12-16 09:00] LABS: ABSOLUTE RETIC COUNT 0.0718 10^6/uL
[2019-12-16 09:02] LABS: % SATURATION 3 % (20-39); IRON 9 ug/dL (50-170); TIBC 283 ug/dL (250-450)
--- NOTE | 2019-12-16 15:04 | NUR ---
on-going assessment: CM REVIEWED CHART AND SPOKE WITH PATIENT. PER ID PROGRESS NOTE PATIENT MAY NEED PROLONGED IV ANBX. CM MET WITH PT TO DISCUSS IF SHE HAS EVER HAD HOME IV ANBX OR HH. PT STATES SHE HAS NOT. CM DISCUSSED IF PATIENT WERE TO POSSIBLY NEED HOME IV ANBX CM COULD CHECK HER INSURANCE COVERAGE. PT REPORTS HAVING NO PREFERENCE OF INFUSION/HH COMPANY BUT REPORTS SHE IS VERY TIGHT ON [place] SO IF IT COST HER ANYTHING SHE WILL LIKELY NOT AGREE TO IT. CM DISCUSSED IT IS UNCLEAR IF PATIENT WILL FOR SURE NEED IV ANBX AT THIS. CM FAXED REFERRAL TO [employer] TO CHECK PATIETNS COVERAGE AND JUST I[facility]RA CURRENT ANTIBIOTIC REGIME. WITH CURRENT MEDICATION CEFAZOLIN 2GM Q8 IT WOULD COST 128.27/WEEK FOR MEDICATION AND SUPPLIES. CM ALSO FAXED REFERRAL TO [facility]. AWAITING FURTHER INPUT AT THIS TIME FOR DISCHARGE RECOMMENDATIONS/NEEDS. CM WILL CONTINUE TO FOLLOW TO ASSIST NEEDED.
--- NOTE | 2019-12-16 16:36 | NUR ---
ASSUME PT AT 0715. PT IS A&OX4, VSS, UP AD ORI, AND CONTINENT TO BOWEL AND BLADDER. PT HAS A KATERINA DRESSING, AND ON ABX, DRESSING WAS CHANGED BY PHYSICIAN. PT IS ON REGULAR DIET. CALL LIGHT IS IN REACH, WILL CONTINUE TO MONITOR.
[2019-12-16 19:00] VITALS: BP 139/62
[2019-12-16 19:04] VITALS: BP 111/46
--- NOTE | 2019-12-16 20:27 | NUR ---
I AGREE WITH NURSING ASSESSMENT AND NURSING NOTE DONE BY REBECCA/ROSSY.
--- NOTE | 2019-12-16 20:48 | NUR ---
Assumed pt 's care this pm shift. Was informed after report that [facility] called and pt is to be transferred to CCU. Pt was not pleased but agreed to go. Pt requested for pain med prior to transfer. Dr Perry and NIKITA (I believe) were in the pt's room prepping to change dressing to L/groin and put in prevana wound vac. Dressing C/D/I. Pt had emeli dressing prior. Pt voiced pain being at 20 during packing of wound and was given 2 tabs of norco. Report was given to Karen CCU RN. Pt have been transferred to CCU at this time with belongings. No other assessments or HS meds were given.
[2019-12-16 21:42] VITALS: BP 141/84
--- NOTE | 2019-12-17 03:12 | NUR ---
PT WAS TRANSFERED FROM TO THE UNIT AT ABOUT 2044.PT IS A/O X4.PT UP AD ORI AND EDUCATED TO CALL FOR HELP IF NEEDED.PT IS ON TELE.PT HAS A LT GROIN KATERINA DRESSING AND PERVANA WOUND VAC.PT PAIN MANAGED WITH HYDROCODONE.PT DEMANDED FOR SLEEPING PILLS.PT STARTED ON VANCOMYCIN AND ALSO ON CEFAZOLIN .WILL CONTINUE TO MONITOR POC
[2019-12-17 04:37] VITALS: BP 120/63
[2019-12-17 07:45] VITALS: BP 126/59
[2019-12-17 12:40] VITALS: BP 143/57
[2019-12-17 16:00] VITALS: BP 146/94
--- NOTE | 2019-12-17 17:05 | NUR ---
DC planning options for either home health/home infusion or snf discussed with the pt at bedside. She refused SNF and plans to dc home hopefully this weekend. She reports have a cleaning lady and some helpful friends for groceries and errands. 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 She is aware that she will have a copay for the iv med/supplies. She is agreeable. Updated MAR and ID note faxed to [facility] aguirre. Both Cheng PANDA and Valdo are anticipating dc this weekend but will need updated dc orders confirmation calls once dc is confirmed. The pt is getting a picc line. She will need nursing support and teaching at home. She is up ad bharat in her room and has been cleared by therapy. VALDO borjas pharmd [phone], fax [phone] Cheng PANDA [phone], fax [phone]
[2019-12-17 17:09] VITALS: BP 143/57
--- NOTE | 2019-12-17 19:45 | NUR ---
VAT CONSULTED FOR A PICC FOR LT ABX. LUABASILIC 4FRSLPICC PLACED WITH TIP IN DSVC AND RELEASED FOR USE
[2019-12-17 20:00] VITALS: BP 134/68
--- NOTE | 2019-12-17 21:17 | NUR ---
RECEIVED PT'S CARE AROUND 0730; PT. ON BED; ALERT; C/O HEADACHE; PRN PAIN MEDICATION GIVEN WITH AM MEDICATIONS; DURING AM ASSESSMENT PT. AOX4; AM MEDICATIONS GIVE; EDUCATED ABOUT FALL PRECAUTIONS; REASON TO WEAR SUCKS WHILE AMBULATING; UPSET ABOUT REQUESTING TO WEAR SUCKS WHILE AMBULATING; EDUCATED ABOUT THE IMPORTANCE; ST. UNDERSTANDING; DURING THE AFTERNOON PER ANDREW SHELTON; PT. C/O ITCHING OVER LUE WHILE TRANSFUSING VANCOMYCIN; ASSESSED; NOTICED SOME SWELLING AROUND IV; IV NOT INFILTRATED; I/D NOTIFIED; BENADRYL GIVEN & VANCOMYCIN RUN AFTER 40 MIN; NO SWELLING OR C/O ITCHING; PER PT. BP WAS TAKEN ON THE SAME ARM WHILE ANTIBIOTIC RUNNING; NURSE AID EDUCATED ABOUT NOT TAKEN BP ON THE SAME ARM THAT IV IS RUNNING; ANDREW NOTIFIED DURING ROUNDING; IV ANTIBIOTIC CHANGED; GUN FITTER NOTIFIED; PICC LINE ON PLACED; ASSESSMENT CHARGED; FOLLOWING POC; PASSED ON REPORT; NIGHT NURSE NOTIFIED ABOUT PT. "[facility] BUDGET", PER GUN FITTER NOTE; DUE TO NEW IV ANTIBIOTIC MIGHT NOT BE AFFORDABLE FOR PT & REPLACEMENT MIGHT NEED TO BE FOUND;
[2019-12-18 03:40] VITALS: BP 140/61
[2019-12-18 05:11] LABS: CALCIUM 8.4 mg/dL (8.5-10.1); CREATININE 0.7 mg/dL (0.6-1.0); POTASSIUM 4.2 mmol/L (3.5-5.1)
[2019-12-18 07:45] VITALS: BP 156/71
--- NOTE | 2019-12-18 08:07 | NUR ---
ASSUMED CARE OF PATIENT AT 1900; C/O OF PAIN TO LEFT GROIN WITH COMPLETE RELIEF FROM MEDICATION; NO DISTRESS NOTED; SR ON MONITOR; SLEPT MOST OF THE NOC WITH SLEEP MEDICATION GIVEN; POTENTIAL DISCHARGE TODAY TO HOME WITH PICC LINE/IV ABX AND HOME HEALTH.
--- NOTE | 2019-12-18 11:34 | NUR ---
Received awake on bed. Due medications given as prescribed, able to swallow meds w/o difficulty. On room air. Vital signs stable. A+Ox4. On telemetry; no complains and signs of chest pain, crushing sensation and heaviness noted. On regular diet- tolerating well; no nausea, no vomiting and no abdominal pain noted. Continent of bowel and bladder. With L upper arm single lumen PICC line, dressing C/D/I. Assisted in ADLs. Dressing at L groin C/D/I- connected to wound vac- dressing changed today by wound nurse. No complains of pain made during assessment. Assisted in ADLs. To continue monitoring patient.
[2019-12-18 15:50] VITALS: BP 125/49
[2019-12-18 19:40] VITALS: BP 124/50
[2019-12-19 04:17] VITALS: BP 142/62
--- NOTE | 2019-12-19 04:30 | NUR ---
ASSUMED CARE OF PATIENT AT 1900; VSS/SR ON MONITOR WITH PVCs NOTED AT 0200 HR; PATIENT SLEPT MOST OF THE NOC WITH SLEEP MEDICATION; PATIENT STEADY AND UP TO BSC TOLERATED; PLAN IS TO D/C WITH HOME HEALTH PICC LINE/IV ABX; PREVENA WOUND VAC TO MRSA POSITIVE LT GROIN SITE W/O C/O PAIN, REDNESS, AND TIGHT SEAL AROUND SITE. WILL CONTINUE TO MONITOR AND FOLLOW POC.
--- NOTE | 2019-12-19 08:24 | NUR ---
ASSUMED CARE OF PT AT SHIFT CHANGE, REPORTS OF PT BEING DISATISFIED W/STAY AND CARES. DR. HAMLIN CAME TO SHARE PT'S UPSET WITH NURSES PRIOR CARE ON OUR FLOOR. SATISFIED WITH CARE OF 4TH EXCEPT FOR AN AIDE WHO DIDN'T WANT TO HEAT UP HER FOOD. A&OX4, AMB STEADY W/WOUND VAC. ENCOURAGED HER TO USE CALL FOR ANY NEEDS. LISTENED TO HER UPSETS AND ASSURED HER ALL WOULD GO WELL TODAY MUCH POSSIBLE AND THAT I WALK MY PATIENTS SOME TIME IN AFTERNOON WHEN ABLE. ALSO WANTS TO CLEAN UP. UPSET ABOUT HER FOOD TRAYS NOT BEING PICKED UP AFTER EACH MEAL ETC. WOUND VAC TO LEFT GROIN, ITCHES A LITTLE BIT. WILL CONTINUE TO MONITOR
[2019-12-19 19:56] VITALS: BP 153/69
[2019-12-20 05:04] VITALS: BP 150/61
--- NOTE | 2019-12-20 06:42 | NUR ---
assumed pt care at the chnage of shift, pt is awake, alert and oriented, pleasant, upadlib, wound vac to the left groin intact, sr on the monitor, remains on room air, c/o pain, prn pain medicine given as charted, assessments as charted, rested well, no issues or complains voiced, will pass on report to day nurse
[2019-12-20 08:00] VITALS: BP 155/81
[2019-12-20 16:40] VITALS: BP 135/59
--- NOTE | 2019-12-20 16:59 | NUR ---
AAOX4. WOUND VAC LEFT GROIN INTACT. DENIES PAIN, CP. MULTIPLE COMPLAINTS ABOUT STAFF. DR. HAMLIN AND ANDREW HERE, REPLACE/REVISE WOUND VAC. SR PER TELE. WILL CONTINUE TO FOLLOW CLOSELY.
--- NOTE | 2019-12-20 17:40 | NUR ---
Dapto $776 a week with out supplies, Cefazolin $128 a week with supplies for home infusion. Patient reports cannot afford. Sp with Dr Wilcox plan to inquire into outpatient infusion. Faxed referral and clinical for review.
[2019-12-20 21:38] VITALS: BP 143/58
[2019-12-21 04:15] VITALS: BP 141/70
--- NOTE | 2019-12-21 06:53 | NUR ---
assumed pt care at the change of shift, pt is awake, alert and oriented, assessments as charted, pain meds given as per may, sr on the monitor, cannister changed on the wound vac, c/o itching, prn meds given as per may, no acute distress noted, will pass on report
[2019-12-21 08:00] VITALS: BP 153/82
[2019-12-21 12:00] VITALS: BP 163/69
--- NOTE | 2019-12-21 14:42 | NUR ---
Nutrition: pt admitted with groin cellulitis, + staph infection. S/P left femoral endarterectomy 2 weeks ago. PMH: HTN, HLD, COPD, CAD, stents, left nephrectomy, GERD, CKD. Stable weights reported. Appetite good, 50-100% of meals. Voiced some discontent with certain meal options so orders meals as desired. Also noted diet has been liberalized to regular from heart healthy. RD obtained food preferences and encouraged protein/reviewed sources for wound healing. Has wound vac and requiring IV antibiotics-will require post D/C as well. Pt refuses any additional supplements, will try and eat more protein foods. Consider low nutrition risk.
[2019-12-21 16:00] VITALS: BP 143/72
--- NOTE | 2019-12-21 16:42 | NUR ---
Patient is approved for outpatient infusion with no copay. Updated patient. She cont with wound vac and IV.
[2019-12-21 20:38] VITALS: BP 138/56
[2019-12-22 05:09] VITALS: BP 110/67
--- NOTE | 2019-12-22 07:41 | NUR ---
ASSUMED PT CARE AT THE CHNAGE OF SHIFT, PT IS AWAKE, ALERT AND ORIENTEDX4, SR ON THE MONITOR, ASSESSMENTS CHARTED, WOUND VAC TO THE LEFT GROIN INTACT, COMPLAINED OF PAIN ON THE LEFT GROIN, PAIN MEDS GIVEN PER MAR WITH RELIEF, DENIES HAVING CONCERNS, REPORT PASSED TO DAY NURSE
[2019-12-22 07:45] VITALS: BP 124/68
--- NOTE | 2019-12-22 11:22 | NUR ---
PT. WAS VERY CHATTY THIS AM AND WORKED WELL WITH THE TEAM ON HER CARE. WOUND VAC CHAMBER WAS CHANGED OUT WITH 400 ML OF STRAW COLORED OUTPUT AT THIS TIME. DR. GUILLORY AND PA AT BEDSIDE FOR CHANGING OF TUBING AND DISCUSSED HER DISCHARGE PLANNING FOR PUTPATIENT TREATMENTS. WATCHING TV DENIES ANY PAIN AT LEFT GROIN SITE. SEAL ON LEFT GROIN WOUND VAC IS INTACT, NO AIR LEAK OBSERVED WHEN CHECKED FOR ONE ON THE MACHINE FORMAT TO DO SO. KIANNA ANY SOB, NSR, NO SIGN'S OF CELLULITIS AT SITE. NO HARD AREAS, ALL SOFT TO TOUCH. DRESSING IS CAUSING HER SOME ITCHING BENADRYL GIVEN FOR SUCH THIS AM, AFEBRILE.
--- NOTE | 2019-12-22 13:18 | NUR ---
Patient accepted for outpatient infusion. plan for wound care and CTS review wound in am. pending how wound appears possible dc or cont irrigation 3 more day. Casemgt following.
--- NOTE | 2019-12-22 15:02 | NUR ---
CHECKED TUBING SYSTEM SHE MABULATED TO THE RESTOOM AND GOT IT TANGLED UP WHEN DOING SO. 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 DENIES ANY WANTS OR NEEDS, DENIES ANY PAIN THAT WOULD REQUIRE AN INTERVENTION AT PRESENT. NSR, NO ECTOPY.
[2019-12-22 16:23] VITALS: BP 129/61
[2019-12-22 19:58] VITALS: BP 144/69
--- NOTE | 2019-12-23 03:41 | NUR ---
Assumed pt care at 1900. Pt is alert and oriented with no sign of distress noted in. Denies any pain. Wound vac is in place. Pt is ambulatory. Assessment completed and documented. Scheduled meds administered to pt. No acute events overnight. Continue to monitor. No further needs at this time.
[2019-12-23 04:05] VITALS: BP 136/72
[2019-12-23 07:53] VITALS: BP 129/60
[2019-12-23 12:13] VITALS: BP 143/57
[2019-12-23 12:20] VITALS: BP 143/57
[2019-12-23 12:31] VITALS: BP 143/57
--- NOTE | 2019-12-23 12:32 | NUR ---
Pt dcing home today. Outpt iv atb arranged through outpt infusion for 11am tomorrow. dc orders faxed to [facility] in outpt infusion. Pt aware of her f/u plan and will be here at the main registration at 10:45am tomorrow.
[2019-12-23] MEDS ORDERED: ACETAMINOPHEN325 M1 PO (12:36)
[2019-12-23] MEDS ORDERED: CUBICIN500 MG IVPB (12:36)
[2019-12-23] MEDS ORDERED: HYDROCODON-ACE1 EAC7 PO (12:36)
[2019-12-23 13:32] VITALS: BP 143/57
--- NOTE | 2019-12-23 14:16 | NUR ---
09:00-MEDICATIONS GIVENA T THIS TIME. SHE IS READY TO GO HOME NOW AND REINFORCED WE STILL HAVE MORE WORK TO DO ON HER DRESSING AND SETTING UP HER INFUSION TOMORROW MORNING AT 11AM ACCORDING TO THE INFUSION NURSE TEAM. DENIES ANY PAIN, AFEBRILE AND JUST ASKING FOR COFFEE AND PLEASANT OVERALL TODAY.
--- NOTE | 2019-12-23 14:18 | NUR ---
11:00 ALL POST OP INSTRUCTIONS PROVIDED PER ANDREW AND DR. BORREGO ASKED TO SIGN OFF AT THIS TIME FOR DISCHARGE IF HE WAS IN AGREEMENT WITH SUCH. DRESSING CHANGED TO LEFT GROIN WOUND VAC SIGHT PER ANDREW SHELTON AND DR GUILLORY AT BEDSIDE. PT. DENIES PAIN AT SITE, NORMAL TEMPERATURE TO TOUCH, NO MOTTLING NEAR AREA EITHER OBSERVED. PT. NSR, NO ECTOPY, DENIES ANY SOB.
--- NOTE | 2019-12-30 15:52 | HC ---
[facility] [place] [address] CONSULTATION Name: LINDA LAYNE Room #: 208-P [facility] IN M.R.#: [id number] Admission: 12/14/19 Attend Phys: Tomasz Briec MD Discharge: 12/23/19 Date of : 49 Report #: [id number] THIS REPORT FOR: cc: Mee Haley MD, Laurie Dawn MD Althoff, Jeffrey R. MD ~ DATE OF SERVICE: 12/23/2019 CHIEF COMPLAINT: Left inguinal surgical wound. HISTORY OF PRESENT ILLNESS: This is a 74-year-old female patient who was admitted on 12/14/2019 with a history of hypertension, hyperlipidemia and coronary artery disease, status post stents. She underwent a left groin femoral endarterectomy on 11/25/2019. She was noted to have a seroma postoperatively. She was admitted for intravenous antibiotic therapy. The seroma was drained and there are 2 areas that are open and a wound VAC had been applied with a VeraFlo function a couple of days ago. I was asked by Dr. Perry to evaluate her for ongoing local care. The patient is likely going to be going home later in the day or earlier tomorrow. PAST MEDICAL HISTORY: Positive for hypertension, hyperlipidemia, COPD, coronary artery disease, peripheral vascular disease, status post bilateral iliac stents and femoral endarterectomy, history of chronic kidney disease, spinal stenosis, gastroesophageal reflux disease and previous nephrectomy. MEDICATIONS: Include amlodipine, aspirin, fluticasone, pantoprazole, lisinopril, escitalopram, ProAir, clopidogrel, zolpidem, atorvastatin, and cholecalciferol. ALLERGIES: INCLUDE PRAVASTATIN, ROSUVASTATIN, AND REPATHA. FAMILY HISTORY: Noncontributory. SOCIAL HISTORY: The patient admits to social alcohol consumption likely on a daily basis. She is a former smoker. No significant family history noted. REVIEW OF SYSTEMS: CONSTITUTIONAL: The patient denies fever, chills, or weight loss. NEUROLOGICAL: The patient denies focal weakness, numbness or tingling. EYES: The patient denies any visual changes, redness or drainage. ENT: The patient denies earache, nasal drainage or sore throat. CARDIOVASCULAR: The patient denies chest pain, palpitations or diaphoresis. PULMONARY: The patient denies cough or shortness of breath. GASTROINTESTINAL: The patient denies nausea, vomiting, diarrhea or abdominal [address] [address] CONSULTATION Name: LINDA LAYNE MEMO Room #: 208-P DIS IN [facility].#: [id number] Admission: 12/14/19 Attend Phys: Tomasz Brice MD Discharge: 12/23/19 Date of : 49 Report #: [id number] pain. ORTHOPEDIC: The patient has surgical wounds to the left groin region. Other systems in a 14-point review of systems are negative. PHYSICAL EXAMINATION: VITAL SIGNS: At this time include temperature 36.9, pulse 74, respiratory rate 18, and blood pressure 143/57. GENERAL: This is a somewhat chronically ill-appearing female patient who appears to be in no distress. HEENT: Head normocephalic. Nose and throat are clear. NECK: Supple. HEART: Regular rhythm without murmur. ABDOMEN: Soft. Bowel sounds present. EXTREMITIES: Examination of the left inguinal region demonstrates 2 small surgical wounds. One in the groin region, one more on the very lower portion of the left abdominal wall. Both are relatively clean, granulating and do not see any exposed structures. Both are deeper than wide, but showing no evidence of surrounding erythema or fluctuance at this time. NEUROLOGIC: She is alert and oriented and appropriate. LABORATORY DATA: Include white blood count 11.0 with hemoglobin of 8.7, and hematocrit 27.3. Sodium is 140, potassium 4.2, chloride 105, CO2 27, BUN 13, creatinine 0.7, and calcium 8.4. CLINICAL IMPRESSION: 1. Surgical wounds to the left inguinal region and lower abdominal wall following femoral endarterectomy and status post drainage of seroma. 2. Hypertension. 3. Hyperlipidemia. 4. Chronic obstructive pulmonary disease. 5. Coronary artery disease. 6. Peripheral arterial disease. 7. Spinal stenosis. 8. Gastroesophageal reflux. RECOMMENDATIONS: At this point in time, I have gently placed Fibracol Collagen into both wound beds, Prevena VAC will be applied on the surface. We will recommend continued use of Collagen in the wound beds and then the Prevena VAC on the surface. She is likely to be discharged later today. We will continue with her current medications and continue with activity as tolerated. She will be following up with Dr. Perry. We may continue to see her together on an [facility] [address] [place] [address] CONSULTATION Name: LINDA LAYNE MEMO Room #: 208-P [facility] IN M.R.#: [id number] Admission: 12/14/19 Attend Phys: Tomasz Brice MD Discharge: 12/23/19 Date of : 49 Report #: [id number] outpatient basis. The patient is agreeable to current plan of care. I appreciate having been asked to see her in consultation. <ELECTRONICALLY SIGNED> By: Dom Mistry MD 12/30/19 [id number] Dom Mistry MD /nt
== END 2019-12-23 14:27 | disposition home or self-care (01) | DRG 862 ==
LOC: ER 20:51 → EROBS 22:54 → 2N 22:54 → EROBS 22:54 → 4S 22:54 → 2N 12-16 20:55
PROVIDERS: Emergency Medicine; Nurse Practitioner Family; Physician Assistant; ADMIT Internal Medicine; ATTEND Internal Medicine
PROC: 02HV33Z Insertion of Infusion Device into Superior Vena Cava, Percutaneous Approach (ICD-10-PCS; principal; 2019-12-17)
DX: T81.49XA Infection following a procedure, other surgical site, initial encounter (principal); A41.9 Sepsis, unspecified organism; L03.314 Cellulitis of groin; E87.1 Hypo-osmolality and hyponatremia; J44.9 Chronic obstructive pulmonary disease, unspecified; M48.00 Spinal stenosis, site unspecified; E78.5 Hyperlipidemia, unspecified; K21.9 Gastro-esophageal reflux disease without esophagitis; N18.9 Chronic kidney disease, unspecified; I73.9 Peripheral vascular disease, unspecified; F32.9 Major depressive disorder, single episode, unspecified; B95.61 Methicillin susceptible Staphylococcus aureus infection as the cause of diseases classified elsewhere; S30.1XXA Contusion of abdominal wall, initial encounter; B95.7 Other staphylococcus as the cause of diseases classified elsewhere; G47.00 Insomnia, unspecified; D50.9 Iron deficiency anemia, unspecified; M81.0 Age-related osteoporosis without current pathological fracture; I12.9 Hypertensive chronic kidney disease with stage 1 through stage 4 chronic kidney disease, or unspecified chronic kidney disease; I25.10 Atherosclerotic heart disease of native coronary artery without angina pectoris; Z95.5 Presence of coronary angioplasty implant and graft; Z90.5 Acquired absence of kidney; Z90.49 Acquired absence of other specified parts of digestive tract; Z90.710 Acquired absence of both cervix and uterus; Z86.73 Personal history of transient ischemic attack (TIA), and cerebral infarction without residual deficits; Z88.8 Allergy status to other drugs, medicaments and biological substances; Z95.820 Peripheral vascular angioplasty status with implants and grafts; Z87.891 Personal history of nicotine dependence; Z79.82 Long term (current) use of aspirin; Z79.899 Other long term (current) drug therapy; Y83.8 Other surgical procedures as the cause of abnormal reaction of the patient, or of later complication, without mention of misadventure at the time of the procedure; Y92.89 Other specified places as the place of occurrence of the external cause
CPT/HCPCS: 10081; 10194; 10195; 27000; 50953; 57254

== ENCOUNTER → 2019-12-24 | Outpatient (CLI) | payer OTHER ==
[~2019-12-24] MED LIST changes: +ACETAMINOPHEN325 M1 PO; +CUBICIN500 MG IVPB
[2019-12-24 11:12] VITALS: BP 123/58
--- NOTE | 2019-12-24 13:21 | NUR ---
IN FOR DAILY DAPTOMYCIN INFUSION. ADMISSION HISTORY AND ASSESSMENT COMPLETED. DENIED PAIN, DIARRHEA, FEVER, CHILLS, NAUSEA. PICC SITE WITHIN NORMAL LIMITS. TOLERATED INFUSION WITHOUT INCIDENT. CHANGED PICC LINE DRESSING. WEEKEND INSTRUCTIONS GIVEN. DISMISSED IN STABLE CONDITION.
== END ==
LOC: OPONC 06:29
PROVIDERS: ATTEND Specialist
DX: L03.314 Cellulitis of groin (principal)
CPT/HCPCS: 95000

== ENCOUNTER → 2019-12-25 | Outpatient (CLI) | payer OTHER ==
[2019-12-25 11:36] VITALS: BP 156/69
--- NOTE | 2019-12-25 12:26 | NUR ---
IN FOR DAILY DAPTOMYCIN INFUSION FOR LEFT GROIN CELLULITIS. STATED FEELING WELL WITH NO COMPLAINTS OF NAUSEA, DIARRHEA, FEVER, CHILLS, PAIN. STATED THERE IS NO DRAINAGE COMING OUT OF HER WOUND DEVICE. TOLERATED INFUSION WITHOUT INCIDENT. TO RETURN TOMORROW FOR THE SAME. DISMISSED IN GOOD CONDITION.
== END ==
LOC: OPONC 09:17
PROVIDERS: ATTEND Specialist
DX: L03.314 Cellulitis of groin (principal)
CPT/HCPCS: 95000

== ENCOUNTER → 2019-12-26 | Outpatient (CLI) | payer OTHER ==
[2019-12-26 11:23] VITALS: BP 154/57
--- NOTE | 2019-12-26 11:25 | NUR ---
IN FOR DAILY DAPTOMYCIN INFUSION FOR LEFT GROIN CELLULITIS. STATED FEELING WELL TODAY. IN BETTER SPIRITS. TOLERATED INFUSION WITHOUT INCIDENT. DENIED PAIN, NAUSEA, DIARRHEA, FEVER, CHILLS. PICC SITE WNL. TO RETURN TOMORROW FOR THE SAME. DISMISSED IN GOOD CONDITION.
== END ==
LOC: OPONC 09:23
PROVIDERS: ATTEND Specialist
DX: L03.314 Cellulitis of groin (principal)
CPT/HCPCS: 95000

== ENCOUNTER → 2019-12-27 | Outpatient (CLI) | payer OTHER ==
[2019-12-27 13:05] VITALS: BP 125/54
--- NOTE | 2019-12-27 13:37 | NUR ---
HERE FOR DAILY IV DAPTOMYCIN. REPORTS DOING WELL, FEELING WELL. DENIES N/V, DIARRHEA, FEVER/CHILLS, PAIN. WOUND VAC APPLIED TO LT GROIN. STATES F/U PLAN IN PLACE WITH WOUND TEAM AND DR. HAMLIN'S TEAM FOR WOUND MANAGEMENT. WILL SEE DR. DEVI HERE ON FRIDAY. REPORTS TOLERATING MED WITHOUT ANY SIDE EFFECTS. DISMISSED IN STABLE CONDITION. SCHEDULED TO RETURN AGAIN TOMORROW.
== END ==
LOC: OPONC 09:29
PROVIDERS: ATTEND Specialist
DX: L03.314 Cellulitis of groin (principal)
CPT/HCPCS: 95000

== ENCOUNTER → 2019-12-28 | Outpatient (CLI) | payer OTHER ==
[2019-12-28 11:29] LABS: HEMATOCRIT 28.6 % (37.0-47.0); HEMOGLOBIN 9.2 gm/dL (12.0-15.0); MCH 24.7 pg (26.0-34.0); MCHC 32.1 g/dL (28.0-37.0); MCV 76.8 fL (80.0-100.0); RBC 3.72 mil/uL (4.20-5.00); RDW 15.6 % (10.5-14.5); WBC 5.6 thou/uL (4.0-11.0)
[2019-12-28 11:43] LABS: ALBUMIN 3.3 g/dL (3.4-5.0); CALCIUM 8.7 mg/dL (8.5-10.1); CREATININE 1.1 mg/dL (0.6-1.0); POTASSIUM 4.3 mmol/L (3.5-5.1); TOTAL BILIRUBIN 0.4 mg/dL (0.2-1.0); TOTAL PROTEIN 6.5 g/dL (6.4-8.2)
[2019-12-28 15:34] VITALS: BP 154/48
--- NOTE | 2019-12-28 15:45 | NUR ---
IN FOR DAILY DAPTOMYCIN INFUSION. UPON ARRIVAL PATIENT STATED HAVING WEAKNESS AND PAIN IN HER THIGH MUSCLES AND IT HURTS THE MOST WHEN SHE IS SITTING DOWN. NOTIFIED DR. MICHELLE DEVI. RECEIVED ORDERS TO HOLD TODAY'S DOSE, DO CPK AND STOP HER LIPITOR. INSTRUCTIONS GIVEN TO PT. IZZY LAB FROM PICC LINE WITHOUT DIFFICULTY AND FAXED RESULTS TO DR. DEVI. CPK WITHIN NORMAL LIMITS. AWAITING RETURN CALL FROM OFFICE TO VERIFY OK TO RESTART DAPTOMYCIN TOMORROW. DISMISSED IN STABLE CONDITION.
== END ==
LOC: OPONC 10:15
PROVIDERS: ATTEND Specialist
DX: L03.314 Cellulitis of groin (principal); R53.1 Weakness; M79.18 Myalgia, other site

== ENCOUNTER → 2019-12-29 | Outpatient (CLI) | payer OTHER ==
[2019-12-29 10:46] VITALS: BP 143/56
--- NOTE | 2019-12-29 11:20 | NUR ---
PT HERE FOR DAILY IV DAPTOMYCIN. DOSE HELD YESTERDAY D/T ONSET OF WEAKNESS/PAIN ANTERIOR THIGHS WHICH STARTED ON FRI PER PT. LABS FROM YESTERDAY REVIEWED WITH DR. DEVI WELL PT ASSESSMENT. PT STATES PAIN IS A LITTLE BETTER TODAY. RATES AT A 7 WHEN FIRST GETS UP/DOWN. WALKING OK. LEGS SORE TO THE TOUCH. LAST DOSE OF LIPITOR WAS ON FRIDAY (MAYBE FRIDAY). DR. DEVI STATES OK TO PROCEED. ADVISED PT TO TAKE IBUPROFEN FOR LEG PAIN. PT INSTRUCTED TO KEEP NURSE INFORMED ABOUT PAIN LEVEL EACH DAY. VERBALIZES UNDERSTANDING AND AGGREEABLE TO PLAN. PT ALSO UNDERSTANDS TO HOLD LIPITOR. STATES SHE HAD RESUMED IT POST HOSPITAL STAY BECAUSE SHE THOUGHT SHE WAS SUPPOSED TO GO BACK ON HER NORMAL MEDS. TOLERATED TODAY'S DOSE WITHOUT INCIDENT. DISMISSED IN STABLE CONDITION. WALKED OUT FROM CLINIC TO CAR PER PT PREFERENCE. SCHEDULED TO RETURN AGAIN TOMORROW.
== END ==
LOC: OPONC 08:45
PROVIDERS: ATTEND Specialist
DX: L03.314 Cellulitis of groin (principal); R53.1 Weakness; M79.18 Myalgia, other site
CPT/HCPCS: 95000

== ENCOUNTER → 2019-12-30 | Outpatient (CLI) | payer OTHER ==
[2019-12-30 15:17] VITALS: BP 124/53
--- NOTE | 2019-12-30 15:22 | NUR ---
IN FOR DAILY DAPTOMYCIN INFUSION. STATED LEGS FEELING MUCH BETTER WITH ONLY SORENESS NOTED. PATIENT STATED SHE IS NOT TAKING HER LIPITOR. WOUND CARE REMOVED PUMP FROM LEFT GROIN. TOLERATED INFUSION WITHOUT INCIDENT. TO RETURN TOMORROW FOR THE SAME. DISMISSED IN STABLE CONDITION.
== END ==
LOC: OPONC 08:47
PROVIDERS: ATTEND Specialist
DX: L03.314 Cellulitis of groin (principal)
CPT/HCPCS: 95000

== ENCOUNTER → 2019-12-31 | Outpatient (CLI) | payer OTHER ==
--- NOTE | 2019-12-31 17:04 | NUR ---
HERE FOR DAILY IV DAPTOMYCIN INFUSION. REPORTS DOING WELL, FEELING WELL. NO CONCERNS NOTED. WOUND VAC REMOVED YESTERDAY. SEEN BY DR. DEVI TODAY. GROIN SITE ALMOST FULLY CLOSED, LOOKS GOOD. ABD DRAIN SITE CLEAN/DRY. DENIES N/V/DIARRHEA, FEVER/CHILLS. NO FURTHER LEG PAIN AFTER STOPPING LIPITOR. TOLERATED INFUSION TODAY WITHOUT INCIDENT. DISMISSED IN STABLE CONDITION. SCHEDULED TO RETURN AGAIN TOMORROW.
== END ==
LOC: OPONC 08:48
PROVIDERS: ATTEND Specialist
DX: L03.314 Cellulitis of groin (principal)
CPT/HCPCS: 95000

== ENCOUNTER → 2020-01-01 | Outpatient (CLI) | payer OTHER ==
[2020-01-01 11:30] VITALS: BP 137/65
--- NOTE | 2020-01-01 11:30 | NUR ---
HERE FOR DAILY IV DAPTOMYCIN INFUSION. REPORTS DOING WELL, FEELING WELL. NO LEG PAIN. DENIES N/V/DIARRHEA, FEVER/CHILLS. TOLERATED INFUSION WITHOUT INCIDENT. DISMISSED IN STABLE CONDITION. SCHEDULED TO RETURN TOMORROW.
== END ==
LOC: OPONC 08:49
PROVIDERS: ATTEND Specialist
DX: L03.314 Cellulitis of groin (principal)
CPT/HCPCS: 95000

== ENCOUNTER → 2020-01-02 | Outpatient (CLI) | payer OTHER ==
[2020-01-02 11:10] VITALS: BP 151/64
--- NOTE | 2020-01-02 11:29 | NUR ---
HERE FOR DAILY IV DAPTOMYCIN INFUSION. REPORTS DOING WELL, FEELING WELL. NO CONCERNS NOTED. TOLERATED INFUSION WITHOUT INCIDENT. DISMISSED IN STABLE CONDITION. SCHEDULED TO RETURN AGAIN IN THE MORNING.
== END ==
LOC: OPONC 08:51
PROVIDERS: ATTEND Specialist
DX: L03.314 Cellulitis of groin (principal); R53.1 Weakness; M79.18 Myalgia, other site
CPT/HCPCS: 95000

== ENCOUNTER → 2020-01-03 | Outpatient (CLI) | payer OTHER ==
[2020-01-03 08:50] VITALS: BP 126/64
--- NOTE | 2020-01-03 09:30 | NUR ---
HERE FOR DAILY IV DAPTOMYCIN INFUSION. REPORTS DOING WELL, FEELING WELL. DENIES N/V/DIARRHEA, FEVER/CHILLS, MUSCLE PAIN/WEAKNESS. TOLERATED INFUSION WITHOUT INCIDENT. DISMISSED IN STABLE CONDITION. SCHEDULED TO RETURN AGAIN TOMORROW.
== END ==
LOC: OPONC 08:21
PROVIDERS: ATTEND Specialist
DX: L03.314 Cellulitis of groin (principal)
CPT/HCPCS: 95000

== ENCOUNTER → 2020-01-04 | Outpatient (CLI) | payer OTHER ==
[2020-01-04 09:53] LABS: HEMOGLOBIN 9.4 gm/dL (12.0-15.0); MCHC 31.3 g/dL (28.0-37.0); MCV 76.8 fL (80.0-100.0); RBC 3.9 mil/uL (4.20-5.00); RDW 15.6 % (10.5-14.5); WBC 4.7 thou/uL (4.0-11.0)
[2020-01-04 10:09] LABS: ALBUMIN 3.3 g/dL (3.4-5.0); CALCIUM 8.9 mg/dL (8.5-10.1); TOTAL BILIRUBIN 0.3 mg/dL (0.2-1.0); TOTAL PROTEIN 6.6 g/dL (6.4-8.2)
[2020-01-04 12:31] VITALS: BP 125/62
--- NOTE | 2020-01-04 12:41 | NUR ---
IN FOR DAILY DAPTOMYCIN INFUSION. STATED FEELING WELL. DENIED LEG PAIN, NAUSEA, DIARRHEA, FEVER, CHILLS. PICC SITE WNL. IZZY LABS FROM PICC LINE WITHOUT DIFFICULTY. TOLERATED INFUSION WITHOUT INCIDENT. DISMISSED IN STABLE CONDITION.
== END ==
LOC: OPONC 08:39
PROVIDERS: ATTEND Specialist
DX: L03.314 Cellulitis of groin (principal)
CPT/HCPCS: 95000

== ENCOUNTER → 2020-01-04 | Outpatient (CLI) | payer OTHER | LOC: SJCVCIMAG 07:42 | PROVIDERS: ATTEND Internal Medicine Cardiovascular Disease | DX: I73.9 Peripheral vascular disease, unspecified (principal); M79.604 Pain in right leg; M79.605 Pain in left leg; I25.10 Atherosclerotic heart disease of native coronary artery without angina pectoris; I77.9 Disorder of arteries and arterioles, unspecified; I10 Essential (primary) hypertension; J44.9 Chronic obstructive pulmonary disease, unspecified; E78.00 Pure hypercholesterolemia, unspecified; T14.8XXA Other injury of unspecified body region, initial encounter; L08.9 Local infection of the skin and subcutaneous tissue, unspecified; Z95.828 Presence of other vascular implants and grafts; Z79.899 Other long term (current) drug therapy; Z87.891 Personal history of nicotine dependence; X58.XXXA Exposure to other specified factors, initial encounter; Y93.89 Activity, other specified; Y92.89 Other specified places as the place of occurrence of the external cause; Y99.8 Other external cause status ==

== ENCOUNTER → 2020-01-05 | Outpatient (CLI) | payer OTHER ==
[2020-01-05 11:05] VITALS: BP 128/64
--- NOTE | 2020-01-05 11:05 | NUR ---
HERE FOR DAILY IV DAPTOMYCIN INFUSION. REPORTS DOING WELL, TOLERATING INFUSIONS WELL. DENIES N/V/DIARRHEA, FEVER/CHILLS, MUSCLE WEAKNESS. DISMISSED IN STABLE CONDITION POST INFUSION. SCHEDULED TO RETURN TOMORROW.
== END ==
LOC: OPONC 10:12
PROVIDERS: ATTEND Specialist
DX: L03.314 Cellulitis of groin (principal)
CPT/HCPCS: 95000

== ENCOUNTER → 2020-01-06 | Outpatient (CLI) | payer OTHER ==
[2020-01-06 12:41] VITALS: BP 120/51
--- NOTE | 2020-01-06 12:43 | NUR ---
IN FOR DAILY DAPTOMYCIN INFUSION FOR LT GROIN CELLULITIS. PATIENT STATED FEELING WELL. DENIED PAIN, N/V, F/C, DIARRHEA, MUSCLE WEAKNESS. TOLERATED INFUSION WITHOUT INCIDENT. CHANGED PICC DRESSING. SITE WNL. TO RETURN TOMORROW FOR THE SAME AND TO SEE DR. DEVI. DISMISSED IN GOOD CONDITION.
== END ==
LOC: OPONC 09:59
PROVIDERS: ATTEND Specialist
DX: L03.314 Cellulitis of groin (principal)
CPT/HCPCS: 95000

== ENCOUNTER → 2020-01-07 | Outpatient (CLI) | payer OTHER ==
[2020-01-07 16:11] VITALS: BP 137/59
--- NOTE | 2020-01-07 16:14 | NUR ---
IN FOR DAILY DAPTOMYCIN INFUSION FOR LT GROIN CELLULITIS. STATED FEELING WELL. DENIED NAUSEA, DIARRHEA, FEVER, CHILLS, MUSCLE PAIN. TOLERATED INFUSION WITHOUT INCIDENT. DR. DEVI VISITED. LT GROIN INCISION HEALED. RECEIVED ORDERS TO STOP DAPTOMYCIN AND REMOVE PICC LINE. REMOVED PICC WITHOUT DIFFICULTY AND APPLIED PRESSURE DRESSING. DISMISSED IN STABLE CONDITION.
== END ==
LOC: OPONC 12:07
PROVIDERS: ATTEND Specialist
DX: T87.44 Infection of amputation stump, left lower extremity (principal)
CPT/HCPCS: 95000

== ENCOUNTER → 2020-01-17 | Outpatient (CLI) | payer OTHER | LOC: SJCVC 10:06 | PROVIDERS: ATTEND Internal Medicine Cardiovascular Disease | DX: I25.10 Atherosclerotic heart disease of native coronary artery without angina pectoris (principal); J44.9 Chronic obstructive pulmonary disease, unspecified; I10 Essential (primary) hypertension; E78.00 Pure hypercholesterolemia, unspecified; I73.9 Peripheral vascular disease, unspecified; E04.1 Nontoxic single thyroid nodule ==

== ENCOUNTER → 2020-02-18 | Outpatient (CLI) | payer OTHER | LOC: LAB 10:00 | PROVIDERS: ATTEND Pediatrics | DX: U07.1 COVID-19 (principal) ==

== ENCOUNTER → 2020-02-18 | Outpatient (CLI) | payer OTHER | LOC: CAT 10:09 | PROVIDERS: ATTEND Pediatrics | DX: J43.9 Emphysema, unspecified (principal); R91.8 Other nonspecific abnormal finding of lung field; J98.4 Other disorders of lung ==

== ENCOUNTER 2020-02-23 06:15 | Outpatient (CLI) | payer OTHER ==
[~2020-02-23] VITALS: Ht 165.1 cm; Wt 67.6 kg
[~2020-02-23 06:15] MED LIST changes: +AMBIEN 5 MG TABL5 M1 PO
[2020-02-23 07:42] VITALS: BP 148/67
--- NOTE | 2020-02-25 18:06 | PATH ---
[facility] [address] [place] [address] PATHOLOGY RPT PROCEDURE Name: LINDA PEREZ Room #: DEP SARAHY Badillo#: [id number] Admission: 02/23/20 Date of : 49 Discharge: 02/23/20 Report #: [id number] Path Case #: [id number] L[facility] Accession Number: [id number] . 01 Material submitted: . bronchus - RUL BIOPSY. Modifiers: right, upper lobe . 01 Clinical history: . MULTIPLE LUNG NODULES ON CT . 02 Diagnosis: Lung, right upper lobe, forceps biopsy: - Minute fragment of benign alveolated lung parenchyma with scant benign superficial bronchial epithelial fragments. - Mild chronic inflammation. - Negative for dysplasia or malignancy. (IUV:pit 02/25/2020) QTP 02/25/2020 1731 Local . 02 Electronically signed: . Nellie Fulton MD, Pathologist NPI- [id number] . 01 Gross description: . The specimen is received in formalin, labeled "Linda Perez, RUMelinda biopsy forceps" and consists of a minute fragment of [place] tissue measuring 0.2 x 0.1 x 0.1 cm which is entirely submitted in A1. (SDY; 02/24/2020) SYU/SYU 02/24/2020 1603 Local . 02 Pathologist provided ICD-10: J18.9 . 02 CPT . 616990 Specimen Comment: A courtesy copy of this report has been sent to [phone] Specimen Comment: [phone] Specimen Comment: Report sent to / DR TRIPP Performed at: [address], [place] [id number] MD Angus Arias MD Phone: [phone] Performed at: [address] [id number] MD Nellie Fulton MD Phone: [phone]
== END 2020-02-23 12:35 | disposition home or self-care (01) ==
LOC: PUL 06:15 → TBA 06:16 → PUL 10:28
PROVIDERS: ATTEND Pediatrics
DX: R91.8 Other nonspecific abnormal finding of lung field (principal); R91.1 Solitary pulmonary nodule; J18.9 Pneumonia, unspecified organism; J43.9 Emphysema, unspecified; I10 Essential (primary) hypertension; I25.10 Atherosclerotic heart disease of native coronary artery without angina pectoris; I73.9 Peripheral vascular disease, unspecified; D64.9 Anemia, unspecified; K21.9 Gastro-esophageal reflux disease without esophagitis; E78.5 Hyperlipidemia, unspecified; Z98.890 Other specified postprocedural states; Z86.73 Personal history of transient ischemic attack (TIA), and cerebral infarction without residual deficits; Z87.891 Personal history of nicotine dependence; Z90.49 Acquired absence of other specified parts of digestive tract; Z90.710 Acquired absence of both cervix and uterus; Z79.899 Other long term (current) drug therapy
CPT/HCPCS: 62110; 62900; 70005

== ENCOUNTER → 2020-02-25 | Outpatient (CLI) | payer OTHER | LOC: RAD 11:52 | PROVIDERS: ATTEND Internal Medicine | DX: R91.1 Solitary pulmonary nodule (principal); J98.4 Other disorders of lung ==

== ENCOUNTER → 2020-03-01 | Outpatient (CLI) | payer OTHER ==
[~2020-03-01] MED LIST changes: +NORCO 5-325 TA1 EAC2 PO
== END ==
LOC: PET 10:55
PROVIDERS: ATTEND Internal Medicine Pulmonary Disease
DX: R91.8 Other nonspecific abnormal finding of lung field (principal); J98.4 Other disorders of lung

== ENCOUNTER → 2020-03-06 | Outpatient (CLI) | payer OTHER ==
[~2020-03-06] VITALS: Ht 165.1 cm; Wt 68.0 kg
[2020-03-06 11:26] LABS: HEMATOCRIT 31.8 % (37.0-47.0); HEMOGLOBIN 9.9 gm/dL (12.0-15.0); MCHC 31.1 g/dL (28.0-37.0); MCV 73.8 fL (80.0-100.0); RBC 4.3 mil/uL (4.20-5.00); RDW 18.3 % (10.5-14.5); WBC 6.7 thou/uL (4.0-11.0)
[2020-03-06 11:44] LABS: PROTIME 9.9 Seconds (9.3-11.4)
[2020-03-06 11:56] VITALS: BP 153/70
[2020-03-06 12:04] LABS: APTT 20.8 Seconds (24.5-32.8)
[2020-03-06 13:59] VITALS: BP 142/55
[2020-03-06 15:30] VITALS: BP 112/49
[2020-03-06 16:00] VITALS: BP 147/80
--- NOTE | 2020-03-09 17:06 | PATH ---
[facility] [address] [address] PATHOLOGY RPT PROCEDURE Name: LINDA PEREZ Room #: REG [facility] Christi.#: [id number] Admission: 03/06/20 Date of : 49 Discharge: Report #: [id number] Path Case #: [id number] LCA Accession Number: [id number] . 01 Material submitted: . lung - CORE BIOPSY LEFT UPPER LUNG, NONMASS OPACITY. Modifiers: left, upper lobe . 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 - No definitive/diagnostic invasive foci identified. (IUV:kishor; 03/09/2020) QMS 03/09/2020 1611 Local . 02 Comment: Examination shows one needle core biopsy tissue comprised of bland glandular proliferation. This proliferative focus measures 3.5 mm in greatest dimension. The glandular proliferation shows eosinophilic cytoplasm, no nuclear atypia or pleomorphism, with a lepidic pattern involving the alveolar kim. Properly controlled immunohistochemical stains are performed on block A1. The glandular proliferation shows glandular reactivity with Napsin A, and nuclear reactivity with TTF1. Hep Par is nonreactive. Based on the morphologic features, the lesion may represent partially sampled atypical adenomatous hyperplasia, or adenocarcinoma in situ. Definitive invasion is not identified within the sampled tissue. One additional fragment present within the biopsy tissue shows unremarkable benign alveolar parenchyma. It is unclear if this lesion sampled represents a larger lesion. Please note, sample may not be entirely customer support representative. Correlate clinically and followup as indicated. . Dr. Keo Petty has seen a customer support representative slide (slide A1-5) and concurs with my diagnosis/interpretation. (IUV:kishor; 03/09/2020) . 02 Electronically signed: . Nellie Fulton MD, Pathologist NPI- [id number] . 01 Gross description: . The specimen is received in formalin, labeled "Linda Perez, lung". The site is further designated on the requisition as, "left upper lung". Received are two cores of pale [place] friable tissue measuring 0.6 cm in length by 0.1 cm in diameter. The specimen is filtered and entirely submitted in cassette A1. (CAA; 03/07/2020) [address] [address] PATHOLOGY RPT PROCEDURE Name: LINDA PEREZ Room #: REG SARAHY Badillo#: [id number] Admission: 03/06/20 Date of : 49 Discharge: Report #: [id number] Path Case #: [id number] QAC/QAC 03/07/2020 1056 Local . 02 Pathologist provided ICD-10: J98.4 . 02 CPT . 249698, Z03939, T10616 Specimen Comment: A courtesy copy of this report has been sent to [phone] Specimen Comment: [phone] Specimen Comment: Report sent to / DR OQUENDO Performed at: [address], [place], [place] [id number] MD Angus Arias MD Phone: [phone] Performed at: [address] [id number] MD Nellie Fulton MD Phone: [phone]
== END | disposition home or self-care (01) ==
LOC: CAT 10:41
PROVIDERS: ATTEND Pediatrics
DX: R91.8 Other nonspecific abnormal finding of lung field (principal); J93.9 Pneumothorax, unspecified; J98.4 Other disorders of lung; J44.9 Chronic obstructive pulmonary disease, unspecified; E78.5 Hyperlipidemia, unspecified; Z98.890 Other specified postprocedural states; Z79.899 Other long term (current) drug therapy; Z79.82 Long term (current) use of aspirin; Z86.73 Personal history of transient ischemic attack (TIA), and cerebral infarction without residual deficits; Z88.8 Allergy status to other drugs, medicaments and biological substances

== ENCOUNTER 2020-03-07 12:36 | Inpatient (IN) | payer OTHER ==
[~2020-03-07] VITALS: Ht 165.1 cm; Wt 71.2 kg
[~2020-03-07 12:36] MED LIST changes: -NORCO 5-325 TA1 EAC2 PO
[2020-03-07 12:49] VITALS: BP 170/84
[2020-03-07 13:19] LABS: HEMATOCRIT 33.2 % (37.0-47.0); HEMOGLOBIN 10.2 gm/dL (12.0-15.0); MCH 22.7 pg (26.0-34.0); MCHC 30.7 g/dL (28.0-37.0); MCV 73.8 fL (80.0-100.0); RBC 4.5 mil/uL (4.20-5.00); WBC 8.2 thou/uL (4.0-11.0)
[2020-03-07] MEDS ORDERED: NORCO 5-325 TA1 EAC2 PO (14:33)
--- NOTE | 2020-03-07 16:27 | NUR ---
74 y/o female presenting to the ED c/o shortness of breath. Of note, patient underwent on 03-06-2020 patient in the hospital for a Left upper lung non-mass opacity biopsy with IR. Patient was instructed to be evaluated in the ED if her symptoms continued or worsened. Patient reports this AM when she woke, she felt more short of breath than she normal. Patient was admitted to hospitalist Dr. Suarez with a pulmonary consult of Dr. Torres for Pneumothorax of left lung after this biopsy. Patient was last discharged on 12-23-2019 as an inpatient where discharge instructions related to Post Procedure of her Electromagnetic Navigation Bronchoscopy with Transbronchial Biopsy were given. CM had set patient up with outpatient [facility]. Upon admission in the ED the ED General Assessment finds that the patient is alert and oriented times 4 and the patient requests her contact be her friend Billie at [phone]. However the chart notes her contacts are her granddaughter Yeni Gonzalez at [phone] or son Todd Dorantes at [phone]. CM will follow case for any discharge needs.
[2020-03-07 18:24] VITALS: BP 128/60
[2020-03-07 19:18] VITALS: BP 170/71
[2020-03-07 20:13] VITALS: BP 129/48
[2020-03-08 00:41] VITALS: BP 136/59
--- NOTE | 2020-03-08 04:03 | NUR ---
PT ADMITTED LAST NIGHT WITH PNEUMOTHORAX S/P CHEST TUBE PLACEMENT. ALERT AND ORIENTED. VITALS STABLE. ADMISSION COMPLETED. ALL ASSESSMENTS COMPLETED. PT C/O CHEST TUB SITE, SOB WITH EXERTION. PRN PAIN MEDS GIVEN. AMBULATES WITH STAND BY ASSIST TO THE BATHROOM. NO SKIN ISSUE NOTED. WILL CONTINUE TO MONITOR VITALS. XR SCHEDULED FOR THIS AM. WILL CONTINUE WITH POC.
[2020-03-08 05:17] LABS: HEMATOCRIT 28.9 % (37.0-47.0); MCH 23.2 pg (26.0-34.0); MCHC 31.1 g/dL (28.0-37.0); MCV 74.6 fL (80.0-100.0); RBC 3.88 mil/uL (4.20-5.00); RDW 18.1 % (10.5-14.5); WBC 4.4 thou/uL (4.0-11.0)
[2020-03-08 05:20] LABS: CALCIUM 8.9 mg/dL (8.5-10.1); MAGNESIUM 2.5 mg/dL (1.8-2.4); POTASSIUM 4.4 mmol/L (3.5-5.1)
[2020-03-08 06:07] VITALS: BP 165/59
[2020-03-08 07:15] VITALS: BP 134/56
[2020-03-08 11:30] VITALS: BP 113/58
--- NOTE | 2020-03-08 13:22 | EKG ---
[address] [address] ELECTROCARDIOGRAM REPORT Name: LINDA LAYNE Room #: 210-P ADM IN M.R.#: [id number] Admission: 03/07/20 Attend Phys: Tushar Suarez MD Discharge: Date of : 49 Report #: [id number] [facility] ED Test Date: 2020-03-07 Test Time: 12:40:01 Pat Name: LINDA LAYNE Department: Room: 210 Gender: F C Python Developer: ZOEY : 1945 Requested By: Saqib Larry Order Number: [id number] MD: Braxton Finney Measurements Intervals [place] Rate: 103 P: 76 AK: 130 QRS: 39 QRSD: 82 T: 58 QT: 329 QTc: 431 Interpretive Statements Sinus tachycardia Compared to ECG 11/22/2019 11:40:21 Sinus rhythm no longer present Electronically Signed On 03-08-2020 13:22:42 DIRECTOR INVESTMENT BANKING by Braxton Finney [email or web address] <ELECTRONICALLY SIGNED> By: Braxton Finney MD, [facility] 03/08/20 1322 1240 1240 Braxton Finney MD, FACC /EPI
--- NOTE | 2020-03-08 16:02 | NUR ---
ASSESSMENT CHARTED. PT ALERT AND ORIENTED. VSS. REPORT HAVING BACK PAIN. LIDODERM PATCH APPLIED. PT EVALUATED BY PT/OT. CHEST TUBE PATENT AND INTACT. NO RESPIRATORY DISTRESS NOTED. NO CONCERNS AT THIS TIME.
[2020-03-08 17:00] VITALS: BP 151/62
--- NOTE | 2020-03-08 17:31 | NUR ---
Met with patient who admits with pnemothorax. She has chest tube placed. 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 She lives alone and no hx of DME. Casemgt following.
[2020-03-08 19:30] VITALS: BP 135/54
[2020-03-09 04:45] VITALS: BP 164/66
--- NOTE | 2020-03-09 07:25 | NUR ---
SLEPT MOST OF SHIFT. DENIES COMPLAINTS OF PAIN OR SHORTNESS OF AIR THIS AM. WORKING ON GOALS AND PLAN OF CARE FOR NOC. NO DRAINAGE NOTED FROM CHEST TUBE THIS AM. UP AD ORI IN ROOM WITHOUT COMPLAINTS. PROGRESSING SLOWLY TOWARDS DISCHARGE GOALS.
[2020-03-09 09:00] VITALS: BP 137/49
[2020-03-09 11:50] VITALS: BP 137/77
[2020-03-09 16:40] VITALS: BP 144/65
--- NOTE | 2020-03-09 18:09 | NUR ---
ASSUMED CARE AT SHIFT CHANGE, RESTED ON AND OFF THROUGH OUT THE DAY, SOB WITH ACTIVITIES AND MEDICATED LT LOWER CHEST PAIN NEEDED. AND WILL CONTINUE WITH POC.
[2020-03-09 19:00] VITALS: BP 131/49
[2020-03-10 04:45] VITALS: BP 143/71
[2020-03-10 07:35] VITALS: BP 158/79
[2020-03-10 11:50] VITALS: BP 153/67
--- NOTE | 2020-03-10 14:43 | NUR ---
PT ALERT AND ORIENTED TIMES FOUR. VSS. PT C/O PAIN PRN PAIN MEDICATIONS GIVEN WITH GOOD RELEIF. LEFT SIDE CHEST TUBE IN PLACE. PT TOLERATES MEDS AND MEALS. PT UP TO BSC WITH STANDBY ASSIST. PT PROGRESSING TOWRADS POC GOALS
[2020-03-10 16:30] VITALS: BP 132/79
[2020-03-10 19:30] VITALS: BP 130/55
[2020-03-11 04:00] VITALS: BP 135/60
--- NOTE | 2020-03-11 06:44 | NUR ---
ASSESSMENTS CHARTED, MEDS CHARTED GIVEN. PATIENT RESTING IN BED, CHEST TUBE CLAMPED TO WATER SEAL. C/O PAIN AT INCISION SITE. PATIENT IS HOPING TO GO HOME TODAY. FALL PRECAUTIONS IN PLACE DURING SHIFT.
[2020-03-11 07:00] VITALS: BP 137/59
[2020-03-11 09:52] LABS: ABSOLUTE NEUTROPHILS 4.5 thou/uL (1.4-8.2); BASOPHILS 0.8 % (0.0-2.0); EOSINOPHILS 2.7 % (0.0-3.0); HEMATOCRIT 33.8 % (37.0-47.0); HEMOGLOBIN 10.2 gm/dL (12.0-15.0); LYMPHOCYTES 15.5 % (24.0-44.0); MCH 22.9 pg (26.0-34.0); MCHC 30.3 g/dL (28.0-37.0); MCV 75.6 fL (80.0-100.0); MONOCYTES 8.7 % (1.0-8.0); POLYS 72.3 % (36.0-66.0); RBC 4.47 mil/uL (4.20-5.00); RDW 18.7 % (10.5-14.5); WBC 6.3 thou/uL (4.0-11.0)
[2020-03-11 09:57] LABS: PLATELET COUNT 320 thou/uL (150-400)
[2020-03-11 10:14] LABS: ALBUMIN 3.2 g/dL (3.4-5.0); CREATININE 1.1 mg/dL (0.6-1.0); POTASSIUM 3.9 mmol/L (3.5-5.1); TOTAL BILIRUBIN 0.4 mg/dL (0.2-1.0); TOTAL PROTEIN 6.7 g/dL (6.4-8.2)
[2020-03-11 11:00] VITALS: BP 142/58
[2020-03-11 11:36] LABS: ANISOCYTOSIS 2+; HYPOCHROMASIA 1+; MICROCYTES 1+; OVALOCYTES 1+
[2020-03-11 16:00] VITALS: BP 123/67
--- NOTE | 2020-03-11 17:13 | NUR ---
ASSESSMENT CHARTED - MEDS PER MAY - GIVEN HYDROCODONE FOR FOR PAIN AT CHEST TUBE INSERTION SITE WITH MOD RELIEF. UP TO THE BATHROOM - SOB WITH EXERTION. TOLERATING DIET AND FLUIDS. NO CO'S OF [place]UEA. PT STATED THAT SHE HAD NOT HAD BM GIVEN MIRILAX AND COLACE ORDERED. ONLY SMALL RESULT OBTAINED. PT VOICEING CONCERNS ABOUT BEING HER IN THE HOSPITAL AND WANTING THE TUNE OUT AND WANTING TO GO, ATTEMPTED TO ENCOURAGE HER AND CALM HER. PT APPEARS TO BE COMFORTABLE AT THE PRESENT TIME.
[2020-03-11 19:00] VITALS: BP 127/47
[2020-03-12 04:00] VITALS: BP 147/67
[2020-03-12 04:11] LABS: POTASSIUM 4.1 mmol/L (3.5-5.1)
--- NOTE | 2020-03-12 04:44 | NUR ---
ASSESSMENTS CHARTED, MEDS CHARTED GIVEN. PATIENT UPSET ABOUT NOT SEEING DR OQUENDO TODAY AND STILL HAS CHEST TUBE IN PLACE. PATIENT IS DEPRESSED, AND NEEDS TO GET HOME. FALL PRECAUTIONS IN PLACE DURING SHIFT.
[2020-03-12 07:18] VITALS: BP 148/73
[2020-03-12 12:20] VITALS: BP 142/55
[2020-03-12 17:10] VITALS: BP 132/60
[2020-03-12 20:33] VITALS: BP 149/61
[2020-03-13 04:45] VITALS: BP 137/75
--- NOTE | 2020-03-13 06:38 | NUR ---
ASSESSMENTS CHARTED, MEDS CHARTED GIVEN. PATIENT STILL HAS CHEST TUBE TO WATER SEAL. NO ORDERS FOR SURGERY ON CHART AT THIS TIME, BUT PATIENT STATED DR OQUENDO MIGHT TAKE HER TO SURGERY TODAY TO SEAL PNEUMOTHORAX. FALL PRECAUTIONS IN PLACE DURING SHIFT. C/O PAIN ONCE DURING SHIFT. PATIENT SLEPT WELL DURING MOST OF SHIFT.
[2020-03-13 08:00] VITALS: BP 136/60
[2020-03-13 11:54] VITALS: BP 152/81
[2020-03-13 16:43] VITALS: BP 147/65
[2020-03-13 19:21] VITALS: BP 129/55
--- NOTE | 2020-03-13 20:09 | NUR ---
RECEIVED PT'S CARE AROUND 724; PT. ON BED; AOX4; DURING AM ASSESSMENT NO C/O PAIN; UPSET BECAUSE NOT CLARIFY IF MIGHT PROCEDURE OR NOT; ORDERS ON PLACED; PT. NOTIFIED; AM MEDICATIONS GIVEN; UPSET BECAUSE POC CHANGE FROM DAY TO DAY; EDUCATED ABOUT POC MIGHT CHANGED DEPENDING OF DEVELOPMENT; NO ANSWER; THROUGH THE AFTERNOON NO C/O PAIN; DR. SIDDIQI NOTIFIED ABOUT XRAY RESULTS; NO NEW ORDERS; CT ON PLACED TO WATER SEAL; ASSESSMENT CHARGED; FOLLOWING POC; PASSED ON REPORT; EDUCATED ABOUT FALL PRECAUTIONS AND AMBULATION AROUND THE UNIT; [facility];
[2020-03-14 04:00] VITALS: BP 140/71
--- NOTE | 2020-03-14 05:47 | NUR ---
ASSESSMENTS CHARTED, MEDS CHARTED GIVEN. PATIENT RESTING IN BED DURING SHIFT. ONCE COMPLAINT OF PAIN 6/10 AT INCISION SITE. WAS ABLE TO SLEEP AFTER THAT. PATIENT STILL HAS CHEST TUBE TO WATER SEAL. PLAN OF CARE IS TO CONTINUE LETTING THE PNEUMOTHORAX RESOLVE WITH TIME. FALL PRECAUTIONS IN PLACE DURING SHIFT.
[2020-03-14 08:36] VITALS: BP 141/44
--- NOTE | 2020-03-14 13:30 | NUR ---
RECEIVED PT'S CARE AROUND 0800; PT. ON BED; AOX4; DURING AM ASSESSMENT NO C/O PAIN; REQUESTED TO KNOW WHEN MIGHT HAVE THE XRAY; AM MEDICATIONS GIVEN; GONE FOR XRAY EARLY ON THE MORNING; AROUND 1130 DR. SIDDIQI ROUNDJAYLEEN ON PT. D/C CT; PT. EDUCATED ABOUT REMAINED ON BED FOR AN HOUR; [facility]; PER DR. HAYLEY NICOLAS TO D/C PT. AFTER CT D/C; PT. NOTIFIED; SR ON THE MONITOR; ST WITH EXERTION; NO C/O PAIN; EDUCATED ABOUT FALL PRECAUTIONS; [facility]; ASSESSMENT CHARGED; FOLLOWING POC; WILL WORK ON D/C PAPERS;
[2020-03-14 13:57] VITALS: BP 129/55
[2020-03-14 14:02] VITALS: BP 129/55
== END 2020-03-14 14:21 | disposition home or self-care (01) | DRG 199 ==
LOC: ER 12:36 → EROBS 15:33 → 2N 15:33 → EROBS 17:22 → 2N 19:48
PROVIDERS: Emergency Medicine; Internal Medicine; ADMIT Internal Medicine; ATTEND Internal Medicine
PROC: 0W9B30Z Drainage of Left Pleural Cavity with Drainage Device, Percutaneous Approach (ICD-10-PCS; principal; 2020-03-07)
DX: J95.811 Postprocedural pneumothorax (principal); J96.21 Acute and chronic respiratory failure with hypoxia; I25.10 Atherosclerotic heart disease of native coronary artery without angina pectoris; R91.1 Solitary pulmonary nodule; E78.5 Hyperlipidemia, unspecified; F32.9 Major depressive disorder, single episode, unspecified; I12.9 Hypertensive chronic kidney disease with stage 1 through stage 4 chronic kidney disease, or unspecified chronic kidney disease; I73.9 Peripheral vascular disease, unspecified; G47.00 Insomnia, unspecified; M81.0 Age-related osteoporosis without current pathological fracture; J44.9 Chronic obstructive pulmonary disease, unspecified; F17.210 Nicotine dependence, cigarettes, uncomplicated; D50.9 Iron deficiency anemia, unspecified; N18.30 Chronic kidney disease, stage 3 unspecified; Z99.81 Dependence on supplemental oxygen; Z88.8 Allergy status to other drugs, medicaments and biological substances; Z90.5 Acquired absence of kidney; Y84.8 Other medical procedures as the cause of abnormal reaction of the patient, or of later complication, without mention of misadventure at the time of the procedure; Y82.8 Other medical devices associated with adverse incidents
CPT/HCPCS: 10081

== ENCOUNTER 2020-04-01 21:07 | Inpatient (IN) | payer OTHER ==
[~2020-04-01] VITALS: Ht 162.6 cm; Wt 68.0 kg
[~2020-04-01 21:07] MED LIST changes: +NORCO 5-325 TA1 EAC2 PO
[2020-04-01 21:19] VITALS: BP 112/52
[2020-04-01] MEDS ORDERED: DIPHENHIST25 M2 PO (21:30)
[2020-04-01 21:59] LABS: ABSOLUTE NEUTROPHILS 9.5 thou/uL (1.4-8.2); BASOPHILS 0.6 % (0.0-2.0); EOSINOPHILS 0.5 % (0.0-3.0); HEMOGLOBIN 9.2 gm/dL (12.0-15.0); LYMPHOCYTES 3.3 % (24.0-44.0); MCHC 32.6 g/dL (28.0-37.0); MCV 73.6 fL (80.0-100.0); MONOCYTES 7.9 % (1.0-8.0); PLATELET COUNT 331 thou/uL (150-400); POLYS 87.7 % (36.0-66.0); RBC 3.81 mil/uL (4.20-5.00); RDW 18.4 % (10.5-14.5); WBC 10.9 thou/uL (4.0-11.0)
[2020-04-01 22:13] LABS: ANION GAP 10 mmol/L (7-16); BUN 13 mg/dL (7-18); CALCIUM 8.4 mg/dL (8.5-10.1); CHLORIDE 100 mmol/L (98-107); CO2 24 mmol/L (21-32); CREATININE 0.9 mg/dL (0.6-1.0); GLUCOSE 115 mg/dL (74-106); POTASSIUM 4.1 mmol/L (3.5-5.1); SODIUM 134 mmol/L (136-145)
[2020-04-01 22:16] LABS: PROTIME 9.4 Seconds (9.3-11.4)
[2020-04-01 22:55] LABS: ALBUMIN 2.9 g/dL (3.4-5.0); SGOT 83 U/L (15-37); SGPT 64 U/L (30-65); TOTAL BILIRUBIN 0.2 mg/dL (0.2-1.0); TOTAL PROTEIN 5.9 g/dL (6.4-8.2); TROPONIN-I <0.06 ng/mL (<0.06)
[2020-04-01 22:58] LABS: URINE BILIRUBIN NEGATIVE (Negative); URINE BLOOD NEGATIVE (Negative); URINE CLARITY CLEAR; URINE COLOR YELLOW; URINE GLUCOSE-RANDOM* NEGATIVE (Negative); URINE KETONES NEGATIVE (Negative); URINE LEUKOCYTES-REFLEX TRACE (Negative); URINE NITRITE-REFLEX NEGATIVE (Negative); URINE PROTEIN (DIPSTICK) NEGATIVE (Negative); URINE UROBILINOGEN 0.2 E.U./dl (0.2-1.0)
[2020-04-02 07:27] VITALS: BP 111/60
--- NOTE | 2020-04-02 10:18 | EKG ---
[address] [address] ELECTROCARDIOGRAM REPORT Name: LINDA LAYNE Room #: 170-9 ADM IN .R.#: [id number] Admission: 04/01/20 Attend Phys: Montez Sharp MD Discharge: Date of : 49 Report #: [id number] [facility] ED Test Date: 2020-04-01 Test Time: 21:24:11 Pat Name: LINDA LAYNE Department: Room: 170 Gender: F Weaving Instructor: katharina turner : 1945 Requested By: Jose E Walsh Order Number: [id number] MD: Pollo Avalos Measurements Intervals [place] Rate: 94 P: 54 PA: 143 QRS: 11 QRSD: 86 T: 53 QT: 352 QTc: 441 Interpretive Statements Sinus rhythm Compared to ECG 03/07/2020 12:40:01 Sinus tachycardia no longer present Electronically Signed On 04-02-2020 10:17:51 DATA SME by Pollo Avalos [email or web address] <ELECTRONICALLY SIGNED> By: Pollo Avalos MD 04/02/207 23 23 Pollo Avalos MD /DIEUDONNE
[2020-04-02 19:18] VITALS: BP 91/65
[2020-04-03 06:16] LABS: ABSOLUTE NEUTROPHILS 3.5 thou/uL (1.4-8.2); BASOPHILS 0.1 % (0.0-2.0); HEMATOCRIT 29.7 % (37.0-47.0); HEMOGLOBIN 9.1 gm/dL (12.0-15.0); LYMPHOCYTES 11.5 % (24.0-44.0); MCH 23.2 pg (26.0-34.0); MCHC 30.6 g/dL (28.0-37.0); MCV 75.9 fL (80.0-100.0); PLATELET COUNT 281 thou/uL (150-400); POLYS 85.4 % (36.0-66.0); RBC 3.91 mil/uL (4.20-5.00); RDW 19.5 % (10.5-14.5); WBC 4.1 thou/uL (4.0-11.0)
[2020-04-03 06:24] LABS: ALBUMIN 2.7 g/dL (3.4-5.0); CALCIUM 8.8 mg/dL (8.5-10.1); CREATININE 0.8 mg/dL (0.6-1.0); POTASSIUM 4.5 mmol/L (3.5-5.1); TOTAL BILIRUBIN 0.3 mg/dL (0.2-1.0)
[2020-04-03 07:46] VITALS: BP 123/58
[2020-04-03 14:15] VITALS: BP 122/49
[2020-04-03] MEDS ORDERED: PREDNISONE 20 M20 M1 PO (16:09)
[2020-04-03] MEDS ORDERED: IPRAT-ALBUT 0.5-3 ML INH (16:09)
[2020-04-03] MEDS ORDERED: DOXYCYCLINE HYC50 MG PO (16:09)
== END 2020-04-03 14:15 | disposition home or self-care (01) | DRG 189 ==
LOC: ER 21:07 → EROBS 23:52
PROVIDERS: Emergency Medicine; Specialist; ADMIT Internal Medicine; ATTEND Internal Medicine
DX: J96.01 Acute respiratory failure with hypoxia (principal); J44.0 Chronic obstructive pulmonary disease with (acute) lower respiratory infection; J44.1 Chronic obstructive pulmonary disease with (acute) exacerbation; I73.9 Peripheral vascular disease, unspecified; K21.9 Gastro-esophageal reflux disease without esophagitis; N18.9 Chronic kidney disease, unspecified; I25.10 Atherosclerotic heart disease of native coronary artery without angina pectoris; E78.5 Hyperlipidemia, unspecified; G47.00 Insomnia, unspecified; F41.9 Anxiety disorder, unspecified; F32.9 Major depressive disorder, single episode, unspecified; Z86.16 Personal history of COVID-19; F10.20 Alcohol dependence, uncomplicated; Y90.9 Presence of alcohol in blood, level not specified; I12.9 Hypertensive chronic kidney disease with stage 1 through stage 4 chronic kidney disease, or unspecified chronic kidney disease; Z20.822 Contact with and (suspected) exposure to COVID-19; Z95.820 Peripheral vascular angioplasty status with implants and grafts; Z79.899 Other long term (current) drug therapy; Z79.82 Long term (current) use of aspirin; Z88.8 Allergy status to other drugs, medicaments and biological substances; Z71.41 Alcohol abuse counseling and surveillance of alcoholic

== ENCOUNTER → 2020-04-17 | Outpatient (CLI) | payer OTHER ==
[~2020-04-17] MED LIST changes: +DIPHENHIST25 M2 PO; +DOXYCYCLINE HYC50 MG PO; +IPRAT-ALBUT 0.5-3 ML INH; +PREDNISONE 20 M20 M1 PO
== END ==
LOC: RAD 08:29
PROVIDERS: ATTEND Internal Medicine Pulmonary Disease
DX: R06.02 Shortness of breath (principal)

== ENCOUNTER → 2020-05-26 | Outpatient (CLI) | payer OTHER | LOC: CAT 09:48 | PROVIDERS: ATTEND Internal Medicine Pulmonary Disease | DX: R91.1 Solitary pulmonary nodule (principal); I25.10 Atherosclerotic heart disease of native coronary artery without angina pectoris ==

== ENCOUNTER → 2020-07-18 | Outpatient (CLI) | payer OTHER | LOC: SJCVCIMAG 04-12 08:54 | PROVIDERS: ATTEND Nuclear Medicine Nuclear Cardiology | DX: I70.201 Unspecified atherosclerosis of native arteries of extremities, right leg (principal); I77.811 Abdominal aortic ectasia; I70.8 Atherosclerosis of other arteries; E78.00 Pure hypercholesterolemia, unspecified; M79.605 Pain in left leg; I49.3 Ventricular premature depolarization; I25.10 Atherosclerotic heart disease of native coronary artery without angina pectoris; J44.9 Chronic obstructive pulmonary disease, unspecified; I77.9 Disorder of arteries and arterioles, unspecified; I12.9 Hypertensive chronic kidney disease with stage 1 through stage 4 chronic kidney disease, or unspecified chronic kidney disease; N18.9 Chronic kidney disease, unspecified; Z90.49 Acquired absence of other specified parts of digestive tract; Z90.710 Acquired absence of both cervix and uterus; Z95.820 Peripheral vascular angioplasty status with implants and grafts; Z98.890 Other specified postprocedural states; Z98.61 Coronary angioplasty status; Z88.8 Allergy status to other drugs, medicaments and biological substances; Z79.899 Other long term (current) drug therapy; Z86.16 Personal history of COVID-19; Z87.891 Personal history of nicotine dependence; Z82.49 Family history of ischemic heart disease and other diseases of the circulatory system ==

== ENCOUNTER → 2020-09-12 | Outpatient (CLI) | payer OTHER | LOC: CAT 08:25 | PROVIDERS: ATTEND Pediatrics | DX: R91.1 Solitary pulmonary nodule (principal) ==

== ENCOUNTER → 2021-01-15 | Outpatient (CLI) | payer OTHER | LOC: SJCVCIMAG 07:13 | PROVIDERS: ATTEND Internal Medicine Cardiovascular Disease | DX: I08.1 Rheumatic disorders of both mitral and tricuspid valves (principal); I65.23 Occlusion and stenosis of bilateral carotid arteries; I70.201 Unspecified atherosclerosis of native arteries of extremities, right leg; I70.8 Atherosclerosis of other arteries; I77.9 Disorder of arteries and arterioles, unspecified; Z95.828 Presence of other vascular implants and grafts ==

== ENCOUNTER → 2021-01-16 | Outpatient (CLI) | payer OTHER | LOC: SJCVC 09:30 | PROVIDERS: ATTEND Nuclear Medicine Nuclear Cardiology | DX: I25.10 Atherosclerotic heart disease of native coronary artery without angina pectoris (principal); J44.9 Chronic obstructive pulmonary disease, unspecified; I10 Essential (primary) hypertension; E78.00 Pure hypercholesterolemia, unspecified; I73.9 Peripheral vascular disease, unspecified; Z88.8 Allergy status to other drugs, medicaments and biological substances; Z79.899 Other long term (current) drug therapy; Z72.89 Other problems related to lifestyle; Z87.891 Personal history of nicotine dependence ==

== ENCOUNTER 2021-01-27 15:44 | Emergency (ER) | payer OTHER ==
[~2021-01-27] VITALS: Ht 167.6 cm; Wt 67.6 kg
[2021-01-27 16:25] LABS: ABSOLUTE NEUTROPHILS 3.1 thou/uL (1.4-8.2); BASOPHILS 1.4 % (0.0-2.0); EOSINOPHILS 1.8 % (0.0-3.0); HEMATOCRIT 46.4 % (37.0-47.0); HEMOGLOBIN 15.1 gm/dL (12.0-15.0); LYMPHOCYTES 23.7 % (24.0-44.0); MCH 30.3 pg (26.0-34.0); MCHC 32.5 g/dL (28.0-37.0); MCV 93.2 fL (80.0-100.0); MONOCYTES 10.2 % (1.0-8.0); PLATELET COUNT 266 thou/uL (150-400); POLYS 62.9 % (36.0-66.0); RBC 4.97 mil/uL (4.20-5.00); RDW 13.8 % (10.5-14.5); WBC 4.9 thou/uL (4.0-11.0)
[2021-01-27 16:31] LABS: CALCIUM 9.2 mg/dL (8.5-10.1); CREATININE 0.9 mg/dL (0.6-1.0); POTASSIUM 3.6 mmol/L (3.5-5.1)
[2021-01-27 17:36] LABS: URINE BILIRUBIN NEGATIVE (Negative); URINE BLOOD NEGATIVE (Negative); URINE CLARITY CLEAR; URINE COLOR YELLOW; URINE GLUCOSE-RANDOM* NEGATIVE (Negative); URINE KETONES NEGATIVE (Negative); URINE NITRITE-REFLEX NEGATIVE (Negative); URINE PROTEIN (DIPSTICK) NEGATIVE (Negative); URINE SPECIFIC GRAVITY 1.015 (1.005-1.035); URINE UROBILINOGEN 0.2 E.U./dl (0.2-1.0)
[2021-01-27 17:38] LABS: URINE LEUKOCYTES-REFLEX 2+ (Negative)
[2021-01-27 18:01] LABS: CASTS None Seen /LPF (None Seen); SQUAMOUS >10 Many /LPF (0-3)
[2021-01-27 18:02] LABS: BACTERIA-REFLEX 1-9 Few /HPF (None Seen); CRYSTALS None Seen /LPF (None Seen); URINE RBC 1-2 Rare /HPF (NONE SEEN); URINE WBC-REFLEX 0-5 Rare /HPF (0-5)
[2021-01-27 18:56] LABS: LIPASE 61 U/L (73-393)
[2021-01-27] MEDS ORDERED: CEPHALEXIN500 MG PO (20:20)
[2021-01-27 20:40] VITALS: BP 148/85
--- NOTE | 2021-01-29 07:36 | EKG ---
[address] [address] [place] [address] ELECTROCARDIOGRAM REPORT Name: LINDA LAYNE [id number] Admission: 01/27/21 Attend Phys: Discharge: 01/27/21 Date of : 49 Report #: [id number] [facility] ED Test Date: 2021-01-27 Test Time: 15:56:50 Pat Name: LINDA LAYNE Department: Room: Gender: F Warp Hanger: LAZARO : 1945 Requested By: Williams Lee Order Number: [id number] MD: Braxton Finney Measurements Intervals [place] Rate: 104 P: 77 FL: 126 QRS: 14 QRSD: 88 T: 23 QT: 347 QTc: 457 Interpretive Statements Sinus tachycardia Baseline wander in lead(s) V6 Compared to ECG 04/01/2020 21:24:11 Atrial premature complex(es) now present Sinus rhythm no longer present Electronically Signed On 01-29-2021 7:36:41 HIGH LIFT OPERATOR by Braxton Finney [email or web address] <ELECTRONICALLY SIGNED> By: Braxton Finney MD, [facility] 01/29/21 0736 1556 155 Braxton Finney MD, FACC /EPI
== END 2021-01-27 20:40 | disposition home or self-care (01) ==
LOC: ER 15:44
PROVIDERS: Emergency Medicine
DX: N39.0 Urinary tract infection, site not specified (principal); Z20.822 Contact with and (suspected) exposure to COVID-19; R42 Dizziness and giddiness; J44.9 Chronic obstructive pulmonary disease, unspecified; Z79.899 Other long term (current) drug therapy; Z88.8 Allergy status to other drugs, medicaments and biological substances

== ENCOUNTER → 2021-02-27 | Outpatient (CLI) | payer OTHER ==
[~2021-02-27] MED LIST changes: +CEPHALEXIN500 MG PO
== END ==
LOC: CAT 09:47
PROVIDERS: ATTEND Pediatrics
DX: R91.8 Other nonspecific abnormal finding of lung field (principal)

== ENCOUNTER → 2021-03-13 | Outpatient (CLI) | payer OTHER | LOC: SJCVCIMAG 10:50 | PROVIDERS: ATTEND Internal Medicine Cardiovascular Disease | DX: I65.23 Occlusion and stenosis of bilateral carotid arteries (principal); R91.8 Other nonspecific abnormal finding of lung field; J44.9 Chronic obstructive pulmonary disease, unspecified; I12.9 Hypertensive chronic kidney disease with stage 1 through stage 4 chronic kidney disease, or unspecified chronic kidney disease; N18.9 Chronic kidney disease, unspecified; I25.10 Atherosclerotic heart disease of native coronary artery without angina pectoris; E78.00 Pure hypercholesterolemia, unspecified; Z82.49 Family history of ischemic heart disease and other diseases of the circulatory system; Z88.8 Allergy status to other drugs, medicaments and biological substances; Z79.899 Other long term (current) drug therapy; Z72.89 Other problems related to lifestyle; Z87.891 Personal history of nicotine dependence ==

== ENCOUNTER → 2021-03-30 | Outpatient (CLI) | payer OTHER | LOC: CAT 09:04 | PROVIDERS: ATTEND Internal Medicine Pulmonary Disease | DX: J43.9 Emphysema, unspecified (principal); I71.4 Abdominal aortic aneurysm, without rupture; I25.10 Atherosclerotic heart disease of native coronary artery without angina pectoris ==